=== PATIENT | female | born 1955 | race Caucasian/White ===

== ENCOUNTER 2018-02-14 11:00 | Inpatient (IN) ==
[2018-02-14] MEDS ORDERED: CeFAZolin Syr 3,000MG/30 ML 3,000 MG/30 ML SYRINGE IVPB ONE ×2 (11:35→11:42)
[2018-02-14] MEDS ORDERED: Ringers Solution, Lactated 1,000 ML IVC SCH (11:45)
[2018-02-14] MEDS ORDERED: Heparin 1,000 UNITS/500 mL 500 ML ONE (11:59)
[2018-02-14] MEDS ORDERED: Albuterol 2.5 MG/3 ML NEBULIZER IH ONE (12:08)
[2018-02-14] MEDS ORDERED: Albuterol 2.5 MG/3 ML NEBULIZER ONE (12:09)
[2018-02-14] MEDS ORDERED: *HR* Midazolam HCl 2 MG/2 ML VIAL ONE ×2 (12:42→16:44)
[2018-02-14] MEDS ORDERED: Vancomycin 1,000 MG, Sodium Chloride IRRigation 1,000 ML IR ONE (12:50)
--- NOTE | 2018-02-14 12:58 | Anesthesia Evaluation PreOp ---
Date of Encounter: 02/14/18 Time of Encounter: 12:56 - Past History Planned Operation: Left CEA Cardiac History: GA, HTN, Hyperlipidemia, Cardiac Stent (2010, 2013, 2016), Other (PAD, CAD) Pulmonary History: Smoker, Pack/yr (1 ppd x 50yrs) Other Medical History: Diabetes Type II, Other (morbid obesity) Anesthesia History: No Prior Anesthetic Complications, Past Anesthesia (tubal, breast bx, SHAMA) : No Alcohol Use: rarely Drug use: none Medications and Allergies Aspirin Enteric Coated [Aspirin EC] 81 mg PO DAILY 11/06/15 [History] Clopidogrel [Plavix] 75 mg PO DAILY 11/06/15 [History] Isosorbide MONOnitrate (24 HR) [Imdur] 60 mg PO DAILY 30 Days tab.er.24h [Rx] Losartan [Cozaar] 100 mg PO DAILY 11/06/15 [History] Metformin HCl [Glucophage] 1,000 mg PO BID 11/06/15 [History] Metoprolol [Lopressor] 50 mg PO BID 11/06/15 [History] Pantoprazole Sodium 40 mg PO DAILY 11/06/15 [History] Pravastatin Sodium [Pravachol] 80 mg PO DAILY 11/06/15 [History] Nitroglycerin 0.4 mg SL Q5-6MIN PRN 08/29/17 [History] amLODIPine [Norvasc] 2.5 mg PO DAILY 08/29/17 [History] glipiZIDE [Glipizide] 10 mg PO DAILY 02/14/18 [History] 3 Allergy/AdvReac Type Severity Reaction Status Date / Time shellfish derived Allergy Swelling Verified 02/14/18 12:12 of Lip/Tongue/Throat - Meds/Allergy Pre-op Review Medications Reviewed: Yes Allergies Reviewed: Yes Beta Blockers on Current Med List: Yes If Beta Blockers taken, Date/Time (Last Dose taken): today 929 Anesthesia Results - Labs Laboratory Tests 02/08/18 02/08/18 09:29 09:29 Hgb 14.7 Hct 43.4 Plt Count 293 Sodium 134 L Potassium 4.5 BUN 16 Creatinine 1.00 - Imaging EKG: report reviewed ( Interpretive Statements) Anesthesia Exam Selected Entries 02/14/18 11:22 02/14/18 12:13 Temperature 98.2 F Pulse Rate 64 Respiratory Rate 18 Blood Pressure 155/63 O2 Sat by Pulse Oximetry 96 Oxygen Delivery Method Room Air Weight: 124kg BMI 53 - HEENT Pupil (Motor): EOMI Mallampati: II Teeth: Edentulous Oral Opening: Greater than 3 - ORDER TAKER LOC: Oriented ORDER TAKER Motor: Normal RUE, Normal LUE, Normal RLE, Normal LLE, Normal Face ORDER TAKER Sensory: Normal: RUE, LUE, RLE, LLE, Face - Cardiac Rhythm: Regular Murmur: None - Pulmonary Breath Sounds: bilateral Clear Respiratory Effort: Symmetrical Anesthesia Assess/Plan ASA Score: 3 Modified [place] Scale for Level of Consciousness: Cooperative, oriented, and tranquil Anesthetic Plan: General Monitoring Plan: Standard Monitors, A-Line Recovery Plan: PACU (agrees to GA and a-line. Will accept blood if needed.)
--- NOTE | 2018-02-14 15:59 | History & Physical Report ---
Date of Encounter: 02/14/18 Time of Encounter: 15:45 24 Hour HP Update - Instructions Instructions: If the History and Physical is less than 30 days old and was completed prior to A.M. admission and or procedure and has NOT been updated on calendar day of procedure please complete this update prior to performing procedure. - Update Patient reports changes in Medical Condition: No Changes in examination, assessment, or condition: No Changes in Medication: No Preop tests/diagnostics Reviewed: Yes Surgery Remains Indicated: Yes Consent for Planned Operative Procedure(s) Verified: Yes - Pre-Operative Checklist Preoperative Checklist Indicated: Yes Prophylactic Antibiotic Ordered: Yes (Vancomycin due to mrsa risk) Home Medications Include Beta Razia: Yes Beta Razia Taken Today (Day of Surgery): Yes Beta Razia Taken Yesterday (Day Prior to Surgery): Yes Is VTE Prophylaxis Indicated?: Yes
[2018-02-14] MEDS ORDERED: Protamine Sulfate 50 MG/5 ML VIAL IVP ONE (16:32)
[2018-02-14] MEDS ORDERED: Bupivacaine-MPF 0.25% 10 ML VIAL ONE (16:32)
[2018-02-14] MEDS ORDERED: Heparin 1,000 UNITS/500 mL 1,000 ML ONE (16:33)
[2018-02-14] MEDS ORDERED: *HR* Propofol 200 MG/20 ML VIAL IVP ONE (16:44)
[2018-02-14] MEDS ORDERED: Lidocaine -MPF 2% 2 ML VIAL ONE (16:44)
[2018-02-14] MEDS ORDERED: Dexamethasone 4 MG/ML VIAL ONE (16:44)
[2018-02-14] MEDS ORDERED: *HR* FentaNYL (PF) 100 MCG/2 ML VIAL ONE (16:44)
[2018-02-14] MEDS ORDERED: Ondansetron 4 MG/2 ML VIAL ONE (16:44)
[2018-02-14] MEDS ORDERED: *HR* Remifentanil 1 MG VIAL IVP ONE (16:48)
[2018-02-14] MEDS ORDERED: *HR* Phenylephrine 10 MG/ML VIAL ONE (16:48)
[2018-02-14] MEDS ORDERED: *HR* Remifentanil 2 MG VIAL IVP ONE (18:00)
[2018-02-14] MEDS ORDERED: *HR* Heparin 5,000 UNIT/ML VIAL ONE (19:18)
--- NOTE | 2018-02-14 20:41 | Operative Note ---
Date of procedure: 02/14/18 Pre-op diagnosis: Symptomatic left internalcarotid artery stenosis Post-op diagnosis: same Procedure: Left carotid endarterectomy with hemashield patch angioplasty. Complications: None Anesthesia: GETA Surgeon: Tano Flores Was there an retail administrative assistant present: No Estimated blood loss (cc): 50 Specimen: Left carotid plaque Condition: stable Disposition: PACU Procedure in Detail: Indications: The patient is a 62 year old female with a history of carotid stenosis. She has had multiple prior episodes of left eye amaurosis fugax. She was noted to have significant left internal carotid artery stenosis. A left carotid endarterectomy was recommended to reduce her risk of cerebrovascular accident. Procedure: The patient was identified in the preoperative area. The risks, benefits, and alternatives of the procedure were discussed and all questions were answered. The patient was then taken to the operating room and placed in supine position on the operating table. After induction of general endotracheal anesthesia, the patient was cleaned and draped in normal sterile fashion. A longitudinal incision was made anterior to the left sternocleidomastoid muscle. Hemostasis was obtained via electrocautery. Through a process of blunt , sharp, and electrocautery dissection, the platysma was traversed. The jugular vein was identified. The facial vein was clamped, divided, tied off with a 2-0 silk suture ligature. The jugular vein was retracted in order to expose the carotid bifurcation. The patient received 2000 units of heparin intravenously at this time. Proximal dissection of the common and external carotid arteries were performed circumferentially. Dissection of the internal carotid was performed circumferentially. Vessels loops were passed around the internal and external carotid and an umbilical tape was passed from the common carotid artery. The patient received additional 3000 units of heparin intravenously. Additional heparin was given throughout the case to maintain adequate anticoagulation. After waiting adequate time for it to circulate, the vessels were occluded and a longitudinal arteriotomy was made into the common carotid artery extending into the internal carotid beyond the plaque. Vigorous pulsatile retrograde flow was noted from the internal carotid artery upon release of the loop. Given the significant retrograde perfusion ad the tortuous internal carotid artery, a shunt was not placed. A dental [place] was used to perform a standard endarterectomy on the common, internal and external carotid artery plaque. Proximal and distal endpoints were inspected and elevated flaps were noted. A Hemashield patch was cut to fit the defect and sutured in place with running 6 -0 Prolene. Prior to completing the closure, each vessel was flushed and then reoccluded. Heparinized saline was infused into the lumen. The patch was completed. Flow was restored in the external carotid artery, followed the common carotid artery, lastly the internal carotid artery was opened. A low resistance arterialized signal was present within the internal carotid artery beyond the patch. Thrombin and Gelfoam were used to aid in hemostasis. Meticulous hemostasis was obtained throughout the wound with electrocautery. Platelet rich and platelet poor plasma were infused into the wounds. The sternocleidomastoid was reapproximated with interrupted 3-0 Vicryl. Platelet rich and platelet poor plasma were infused into the wound. A TLS drain was brought through a separate stab incision and sutured in place with 0 silk suture. The platysma was reapproximated with running 3-0 Vicryl. Local anesthetic was infused in the skin. A 3-0 Monocryl was used to reapproximate the skin. Sterile dressing was applied. The patient was extubated, taken to the recovery room in stable condition.
--- NOTE | 2018-02-14 21:20 | Anesthesia Evaluation Post Op ---
Date of Encounter: 02/14/18 Time of Encounter: 21:20 - Vital Signs Vital Signs: Last Vital Signs Temp 97.6 F 02/14/18 21:06 Pulse 60 02/14/18 21:16 Resp 18 02/14/18 21:16 BP 136/63 02/14/18 21:16 Pulse Ox 96 02/14/18 21:16 - Lungs Lungs: Clear Ascult./Percussion - Airway Airway: Non-obstructed - Cardiovascular Regular Rate - Mental Status Mental Status: Alert & Oriented, Answers Appropriately - Pain Pain Scale: 3 - Nausea Vomiting Nausea Vomiting: Not Present - Hydration Hydration: NPO, Bourne catheter - Discharge PostOp Status: Transfer Patient to floor
[2018-02-14] MEDS ORDERED: Insulin LISPRO 300 UNITS/3 ML VIAL SQ SCH (21:52)
[2018-02-14] MEDS ORDERED: *HR* Dextrose 50 % in Water (Syg) 50 ML SYRINGE IVP PRN (21:52)
[2018-02-14] MEDS ORDERED: Dextrose Gel 15 GM/37.5 ML TUBE PO PRN ×2 (21:52)
[2018-02-14] MEDS ORDERED: *HR* OxyCODONE Immed Rel 5 MG TABLET PO PRN (21:52)
[2018-02-14] MEDS ORDERED: Nitroglycerin 0.4 MG TAB.SUBL SL PRN (21:52)
[2018-02-14] MEDS ORDERED: OXYCODONE Oral CONC 10 MG/0.5 ML ORAL.SYG SL PRN ×2 (21:52)
[2018-02-14] MEDS ORDERED: Naloxone 0.4 MG/ML INJ IVP PRN (21:52)
[2018-02-14] MEDS ORDERED: D5% in Water 1,000 ML IVC PRN (21:52)
[2018-02-14] MEDS ORDERED: *HR* HYDROcodone/Acet 5/325 mg TABLET PO PRN (21:52)
[2018-02-14] MEDS ORDERED: 0.9 % Sodium Chloride 1,000 ML IVC SCH (21:52)
[2018-02-14] MEDS ORDERED: Ondansetron 4 MG/2 ML VIAL IVP PRN (21:52)
[2018-02-14] MEDS ORDERED: Acetaminophen 325 MG TABLET PO PRN (21:52)
[2018-02-14] MEDS ORDERED: *HR* Labetalol 20 MG/4 ML SYRINGE IVP PRN (21:52)
[2018-02-14] MEDS ORDERED: CeFAZolin Pre 2,000 MG/100 ML 2,000 MG/100 ML BAG IVPB SCH (22:30)
[2018-02-14] MEDS: ceFAZolin 2,000 MG in D5% in Water 100 ML IVPB SCH (23:20)
[2018-02-14] MEDS: *HR* Metoprolol 5 MG/5 ML VIAL IVP SCH (23:20)
[2018-02-15] MEDS: *HR* Metoprolol 5 MG/5 ML VIAL IVP SCH (05:28)
[2018-02-15] MEDS ORDERED: *HR* Heparin 5,000 UNIT/ML VIAL SQ SCH (06:00)
[2018-02-15 07:30] VITALS: BP 117/56
[2018-02-15] MEDS ORDERED: Insulin LISPRO 300 UNITS/3 ML VIAL SQ SCH (07:30)
--- NOTE | 2018-02-15 07:44 | Discharge Summary ---
Orders not resulted at time of discharge: Pending orders 02/14/18 20:41 Surgical Pathology [PTH] Routine Date of Encounter: 02/15/18 Time of Encounter: 07:40 - Discharge Diagnosis (1) Carotid stenosis, left Priority: Primary Status: Chronic Comments: She is post operative day #1 after a left carotid endarterectomy. She has no neurologic deficits. She is tolerating a diet and her pain is controlled. She will be discharged today. (2) CKD (chronic kidney disease), stage III Priority: Secondary Status: Chronic (3) Mixed hyperlipidemia Priority: Secondary Status: Chronic (4) HTN (hypertension) Priority: Secondary Status: Chronic Qualifiers: Hypertension type: essential hypertension Qualified Code(s): I10 - Essential (primary) hypertension (5) Tobacco abuse Priority: Secondary Status: Chronic - Hospital Course Hospital course: Ms. Kilgore is a 62 year old female who underwent a left carotid endarterectomy and tolerated the procedure well. She was discharged in stable condition on postoperative day #1 without complications. Time spent discussing smoking cessation with patient: 3 to 10 minutes - Time Spent with Patient Total time spent providing and/or coordinating discharge services: - Discharge Medications Prescriptions: HYDROcodone/Acet 5/325 mg [[place] 5-325 mg] 1 tab PO Q6HR PRN 5 Days #20 tablet PRN Reason: postoperative pain Home Medications: Aspirin Enteric Coated [Aspirin EC] 81 mg PO DAILY 11/06/15 [History] Clopidogrel [Plavix] 75 mg PO DAILY 11/06/15 [History] Isosorbide MONOnitrate (24 HR) [Imdur] 60 mg PO DAILY 30 Days tab.er.24h [Rx] Losartan [Cozaar] 100 mg PO DAILY 11/06/15 [History] Metformin HCl [Glucophage] 1,000 mg PO BID 11/06/15 [History] Metoprolol [Lopressor] 50 mg PO BID 11/06/15 [History] Pantoprazole Sodium 40 mg PO DAILY 11/06/15 [History] Pravastatin Sodium [Pravachol] 80 mg PO DAILY 11/06/15 [History] Nitroglycerin 0.4 mg SL Q5-6MIN PRN 08/29/17 [History] amLODIPine [Norvasc] 2.5 mg PO DAILY 08/29/17 [History] glipiZIDE [Glipizide] 10 mg PO DAILY 02/14/18 [History] HYDROcodone/Acet 5/325 mg [[place] 5-325 mg] 1 tab PO Q6HR PRN 5 Days #20 tablet 02/15/18 [Rx] Allergies/Adverse Reactions: 3 Allergy/AdvReac Type Severity Reaction Status Date / Time shellfish derived Allergy Swelling Verified 02/14/18 12:12 of Lip/Tongue/Throat Date of admission: 02/14/18 21:50 Primary care physician: Curry Anne, Procedure(s) Performed: Left carotid endarterectomy Discharging clinician: Tano Flores Anticipated date of discharge: 02/15/18 Exam Vital Signs, Last 4 Hours Temp Pulse Resp BP Pulse Ox 02/15/18 07:23 98.9 F 47 18 117/56 98 02/15/18 04:39 98.1 F 50 16 107/69 95 02/15/18 04:30 59 107/69 General: Present: Conversant, No Apparent Distress HEENT: Present: Trachea midline, Pupils equal Neck: Absent: JVD Cardiac: Present: Reg Rate and Rhythm Lungs: Present: Normal Breath Sounds Neuro: Present: No focal deficits noted, Motor nerves grossly intact, Sensory nerves grossly intact Abdomen: Present: Soft, Non-tender Vascular: Present: Normal capillary refill, Surgical incisions (clean, dry and intact without erythema, drainage or hematoma). Absent: Edema - Patient Status Disposition: Home, Self-Care Condition: Good Functional capacity at discharge: independent ambulation Overall status at discharge: patient is back to baseline - Discharge Instructions Instructions: Hydrocodone/Acetaminophen (By mouth), Carotid Endarterectomy (DC) Follow Up With: Tano Flores MD [Partnered Physician] - 03/25/18 8:50 am Curry Anne DO [Primary Care Provider] - 02/18/18 8:00 am Additional Instructions: May remove bandage and shower on 02/16/18. Wash wound gently and pat to dry. No driving for [address] Flores at [phone]. - Diet and Activity Activity: increase activity as tolerated Diet: advance to your usual diet - VTE Documentation of Mechanical Device: Venous foot pump, device
[2018-02-15] MEDS ORDERED: Isosorbide MONOnitrate (24 HR) 60 MG TAB.ER.24H PO SCH (09:00)
[2018-02-15] MEDS ORDERED: Aspirin Enteric Coated 81 MG Tablet PO SCH (09:00)
[2018-02-15] MEDS ORDERED: amLODIPine 5 MG TABLET PO SCH (09:00)
[2018-02-15] MEDS: ceFAZolin 2,000 MG in D5% in Water 100 ML IVPB SCH (09:42)
== END 2018-02-15 10:14 | disposition home or self-care (01) | DRG 24 ==
LOC: SAMDAY 11:00 → 2NNU 21:50
PROVIDERS: ADMIT Surgery; ATTEND Surgery

== ENCOUNTER 2021-08-30 07:53 | Inpatient (IN) ==
[2021-08-30] MEDS ORDERED: *HR* Rocuronium Bromide 50 MG/5 ML VIAL ONE ×3 (08:35→13:20)
[2021-08-30] MEDS ORDERED: *HR* FentaNYL (PF) 100 MCG/2 ML VIAL ONE ×2 (08:35→11:07)
[2021-08-30] MEDS ORDERED: Ondansetron 4 MG/2 ML VIAL ONE (08:35)
[2021-08-30] MEDS ORDERED: Lidocaine HCL 4 ML Topical Solution (Laryng-O-Jet Kit Sterile Pak) TP ONE (08:35)
[2021-08-30] MEDS ORDERED: Lidocaine -MPF 2% 5 ML VIAL ONE (08:35)
[2021-08-30] MEDS ORDERED: *HR* Propofol 200 MG/20 ML VIAL IVP ONE (08:35)
[2021-08-30] MEDS ORDERED: cefOXitin 2,000 MG in Water for inj. (sterile) 10 ML IVP ONE (08:37)
[2021-08-30] MEDS ORDERED: *HR* Succinylcholine 200 MG/10 ML VIAL IVP ONE (08:41)
[2021-08-30] MEDS ORDERED: Ringers Solution, Lactated 1,000 ML IVC SCH (08:45)
[2021-08-30] MEDS ORDERED: Famotidine 20 MG/2 ML VIAL IVP ONE (09:06)
[2021-08-30] MEDS ORDERED: Ondansetron 4 MG/2 ML VIAL IVP PRN ×3 (09:06→18:06)
[2021-08-30] MEDS ORDERED: Acetaminophen IV 1,000 MG/100 ML BAG IVPB ONE (09:06)
[2021-08-30] MEDS ORDERED: *HR* OxyCODONE Immed Rel 5 MG TABLET PO PRN ×2 (09:06→17:18)
[2021-08-30] MEDS ORDERED: *HR* Metoprolol 5 MG/5 ML VIAL IVP PRN (09:06)
[2021-08-30] MEDS ORDERED: *HR* HYDROmorphone PF 0.5 MG/0.5 ML SYRINGE IVP PRN ×2 (09:06→17:18)
[2021-08-30] MEDS ORDERED: Albuterol 2.5 MG/3 ML NEBULIZER IH PRN (09:06)
[2021-08-30] MEDS ORDERED: EPHEDrine 50 MG/ML VIAL ONE (10:44)
[2021-08-30] MEDS ORDERED: *HR* HYDROMORPHONE 2 MG/ML VIAL ONE (12:27)
[2021-08-30] MEDS ORDERED: CefOXitin 2,000 MG VIAL ONE (13:56)
[2021-08-30] MEDS ORDERED: Promethazine 6.25 MG in Water for inj. (sterile) 20 ML IVPB PRN (17:18)
[2021-08-30] MEDS ORDERED: *HR* HYDROmorphone 20 MG/20 ML PCA IVC PRN (18:06)
[2021-08-30] MEDS ORDERED: *HR* Dextrose 50 % in Water (Syg) 50 ML SYRINGE IVP PRN (18:06)
[2021-08-30] MEDS ORDERED: D5% in Water 1,000 ML IVC PRN (18:06)
[2021-08-30] MEDS ORDERED: Dextrose Gel 15 GM/37.5 ML TUBE PO PRN ×2 (18:06)
[2021-08-30] MEDS ORDERED: Naloxone 0.4 MG/ML INJ IVP PRN (18:06)
[2021-08-30] MEDS ORDERED: cefOXitin 1,000 MG in 0.9 % Sodium Chloride Mini Bag 100 ML IVPB SCH (19:00)
[2021-08-30] MEDS: 0.9 % Sodium Chloride 1,000 ML IVC SCH (19:30)
[2021-08-30] MEDS: Insulin LISPRO 300 UNITS/3 ML VIAL SUBQ SCH ×2 (22:14→23:49)
[2021-08-30] MEDS: Ketorolac 30 MG/ML VIAL IVP SCH ×2 (22:15→23:50)
[2021-08-31 01:11] LABS: Basophils % 0.2 %; Hematocrit 40.1 % (35.3-44.9); Hemoglobin 12.4 g/dL (11.5-15.4); Immature Granulocytes % 0.5 % (0-4); Lymphocytes # 0.8 K/mcL (0.6-4.6); Mean Corpuscular HGB Conc 30.9 g/dL (31.6-35.5); Mean Corpuscular Hemoglobin 27.9 pg (28.0-33.3); Mean Corpuscular Volume 90.1 fL (83.0-100.0); Mean Platelet Volume 11.2 fL (9.4-12.4); Monocytes % 7.2 %; Neutrophils # 11.5 K/mcL (1.6-8.9); Platelet Count 256 K/mcL (140-400); Red Blood Count 4.45 M/mcL (3.82-4.97); Red Cell Distribution Width 14.9 % (11.5-14.5); Segmented Neutrophils % 86.1 %; White Blood Count 13.3 K/mcL (4.3-11.1)
[2021-08-31 01:57] LABS: Calcium 8.8 mg/dL (8.6-10.3); Potassium 4.9 mEq/L (3.5-5.1)
[2021-08-31] MEDS: Ketorolac 30 MG/ML VIAL IVP SCH ×3 (05:10→17:46)
[2021-08-31] MEDS: cefOXitin 1,000 MG in 0.9 % Sodium Chloride Mini Bag 100 ML IVPB SCH ×2 (05:10→15:27)
[2021-08-31] MEDS: Insulin LISPRO 300 UNITS/3 ML VIAL SUBQ SCH ×3 (05:10→17:49)
[2021-08-31] MEDS: 0.9 % Sodium Chloride 1,000 ML IVC SCH ×2 (06:14→17:47)
[2021-08-31] MEDS: Isosorbide MONOnitrate (24 HR) 60 MG TAB.ER.24H PO SCH (09:28)
[2021-08-31] MEDS: *HR* Heparin 5,000 UNIT/ML VIAL SQ SCH ×2 (17:47→22:12)
[2021-09-01] MEDS: Insulin LISPRO 300 UNITS/3 ML VIAL SUBQ SCH ×4 (00:38→17:11)
[2021-09-01] MEDS: Ketorolac 30 MG/ML VIAL IVP SCH ×5 (00:38→23:32)
[2021-09-01] MEDS: *HR* Heparin 5,000 UNIT/ML VIAL SQ SCH ×3 (05:04→21:02)
[2021-09-01] MEDS: 0.9 % Sodium Chloride 1,000 ML IVC SCH ×2 (05:04→16:05)
[2021-09-01] MEDS ORDERED: Morphine Sulfate Oral CONC 10 MG/0.5 ML ORAL.SYG SL PRN (06:12)
[2021-09-01] MEDS: Isosorbide MONOnitrate (24 HR) 60 MG TAB.ER.24H PO SCH (10:03)
[2021-09-01] MEDS: *HR* OxyCODONE/APAP 5/325 TABLET PO PRN ×2 (13:49→21:02)
[2021-09-01 20:23] VITALS: O2SAT 98
[2021-09-01] MEDS ORDERED: Insulin LISPRO 300 UNITS/3 ML VIAL SUBQ SCH (21:00)
[2021-09-02] MEDS: 0.9 % Sodium Chloride 1,000 ML IVC SCH (05:17)
[2021-09-02] MEDS: *HR* Heparin 5,000 UNIT/ML VIAL SQ SCH (05:18)
[2021-09-02] MEDS: Ketorolac 30 MG/ML VIAL IVP SCH ×3 (05:18→11:45)
[2021-09-02] MEDS: *HR* OxyCODONE/APAP 5/325 TABLET PO PRN ×2 (05:26→13:06)
[2021-09-02 07:29] VITALS: TEMP 97.9
[2021-09-02] MEDS: Insulin LISPRO 300 UNITS/3 ML VIAL SUBQ SCH ×2 (08:08→11:46)
[2021-09-02] MEDS: Isosorbide MONOnitrate (24 HR) 60 MG TAB.ER.24H PO SCH (08:09)
[2021-09-02 10:38] VITALS: BP 179/64; PULSE 71
== END 2021-09-02 14:34 | disposition home or self-care (01) | DRG 330 ==
LOC: SAMDAY 07:53 → 3ANU 18:00
PROVIDERS: ADMIT Surgery; ATTEND Surgery

== ENCOUNTER 2021-09-05 23:59 | Inpatient (IN) ==
[2021-09-06] MEDS ORDERED: 0.9 % Sodium Chloride 1,000 ML IVC ONE (00:14)
[2021-09-06] MEDS ORDERED: Isovue-370 500 ML BOTTLE IVP ONE (00:22)
[2021-09-06] MEDS ORDERED: Morphine Sulfate 2 MG/ML SYRINGE IVP ONE ×2 (00:27→00:57)
[2021-09-06] MEDS ORDERED: Ondansetron 4 MG/2 ML VIAL IVP ONE (00:27)
[2021-09-06 00:32] LABS: Basophils # 0.1 K/mcL (0.0-0.2); Basophils % 0.7 %; Eosinophils # 0.1 K/mcL (0.0-0.6); Eosinophils % 0.5 %; Hematocrit 35.2 % (35.3-44.9); Hemoglobin 11.3 g/dL (11.5-15.4); Immature Granulocytes % 4.7 % (0-4); Lymphocytes # 1.6 K/mcL (0.6-4.6); Lymphocytes % 9.3 %; Mean Corpuscular HGB Conc 32.1 g/dL (31.6-35.5); Mean Corpuscular Hemoglobin 27.9 pg (28.0-33.3); Mean Corpuscular Volume 86.9 fL (83.0-100.0); Mean Platelet Volume 10.7 fL (9.4-12.4); Monocytes # 1.7 K/mcL (0.0-1.3); Monocytes % 9.6 %; Neutrophils # 13.2 K/mcL (1.6-8.9); Nucleated Red Blood Cells 0.3 /100 WBC (0); Platelet Count 373 K/mcL (140-400); Red Blood Count 4.05 M/mcL (3.82-4.97); Red Cell Distribution Width 14.8 % (11.5-14.5); Segmented Neutrophils % 75.2 %; White Blood Count 17.5 K/mcL (4.3-11.1)
[2021-09-06 00:48] LABS: INR 1.3; Prothrombin Time 14.9 Seconds (9.4-12.1)
[2021-09-06 00:51] LABS: Activated Partial Thrombo Time 32.2 Seconds (26.0-36.0)
[2021-09-06 00:54] LABS: Albumin 3.3 g/dL (3.5-5.7); Albumin/Globulin Ratio 0.8 (1.1-2.2); Bilirubin,Direct 0.3 mg/dL (0.0-0.2); Bilirubin,Indirect 0.6 mg/dL (0.0-1.0); Bilirubin,Total 0.9 mg/dL (0.3-1.0); Globulin 3.9 g/dL (2.4-3.5); Potassium 3.7 mEq/L (3.5-5.1); Total Protein 7.2 g/dL (6.4-8.9)
[2021-09-06 00:55] LABS: Troponin I 0.03 ng/mL (< 0.04)
[2021-09-06] MEDS ORDERED: *HR* HYDROmorphone (PF) 1 MG/ML SYRINGE IVP ONE (02:21)
[2021-09-06] MEDS ORDERED: Piperacillin/Tazobactam 3.375 GM in 0.9 % Sodium Chloride Mini Bag 100 ML IVPB ONE (03:36)
[2021-09-06] MEDS ORDERED: 0.9 % Sodium Chloride 1,000 ML IVC SCH (04:00)
[2021-09-06] MEDS ORDERED: Naloxone 0.4 MG/ML INJ IVP PRN ×2 (04:03→10:11)
[2021-09-06] MEDS ORDERED: Ondansetron 4 MG/2 ML VIAL IVP PRN ×2 (04:03→04:33)
[2021-09-06] MEDS ORDERED: *HR* HYDROmorphone (PF) 1 MG/ML SYRINGE IVP PRN (04:09)
[2021-09-06] MEDS ORDERED: CefOXitin 1,000 MG VIAL ONE ×2 (04:27→07:29)
[2021-09-06] MEDS ORDERED: Promethazine 6.25 MG in Water for inj. (sterile) 20 ML IVPB PRN (04:33)
[2021-09-06] MEDS ORDERED: *HR* HYDROmorphone PF 0.5 MG/0.5 ML SYRINGE IVP PRN (04:33)
[2021-09-06] MEDS ORDERED: *HR* OxyCODONE Immed Rel 5 MG TABLET PO PRN (04:33)
[2021-09-06] MEDS ORDERED: *HR* Phenylephrine 10 MG/ML VIAL ONE (04:37)
[2021-09-06] MEDS ORDERED: *HR* Succinylcholine 200 MG/10 ML VIAL IVP ONE (04:42)
[2021-09-06] MEDS ORDERED: Lidocaine -MPF 2% 2 ML VIAL ONE (04:42)
[2021-09-06] MEDS ORDERED: *HR* Rocuronium Bromide 50 MG/5 ML VIAL ONE ×2 (04:42→08:17)
[2021-09-06] MEDS ORDERED: *HR* Magnesium Sulfate 1 GM/2 ML VIAL ONE (04:42)
[2021-09-06] MEDS ORDERED: *HR* Propofol 200 MG/20 ML VIAL IVP ONE (04:43)
[2021-09-06] MEDS ORDERED: *HR* FentaNYL (PF) 100 MCG/2 ML VIAL ONE ×2 (04:43→20:05)
[2021-09-06] MEDS ORDERED: *HR* Norepinephrine 4 MG/4 ML VIAL IVC ONE (04:46)
[2021-09-06] MEDS ORDERED: Albumin Human 5% 25.0 GM/500 ML IV.SOLN ONE (04:47)
[2021-09-06] MEDS ORDERED: *HR* Vasopressin 20 UNIT/ML VIAL ONE (04:47)
[2021-09-06] MEDS ORDERED: D5% in Water 1,000 ML IVC PRN (04:51)
[2021-09-06] MEDS ORDERED: Dextrose Gel 15 GM/37.5 ML TUBE PO PRN ×2 (04:51)
[2021-09-06] MEDS ORDERED: *HR* Dextrose 50 % in Water (Syg) 50 ML SYRINGE IVP PRN (04:51)
[2021-09-06] MEDS ORDERED: EPHEDrine 50 MG/ML VIAL ONE (04:52)
[2021-09-06] MEDS ORDERED: Oxymetazoline Nasal SPRAY BOTTLE 15ML NS ONE (05:01)
[2021-09-06] MEDS ORDERED: *HR* Etomidate 40 MG/20 ML VIAL IVP ONE (05:20)
[2021-09-06] MEDS ORDERED: CefOXitin 2,000 MG VIAL ONE ×2 (06:58→06:59)
[2021-09-06] MEDS ORDERED: *HR* Metoprolol 5 MG/5 ML VIAL IVP ONE (07:04)
[2021-09-06] MEDS ORDERED: *HR* Midazolam HCl 2 MG/2 ML VIAL ONE (08:18)
[2021-09-06] MEDS: Pantoprazole 40 MG VIAL IVP SCH (10:44)
[2021-09-06] MEDS: 0.9 % Sodium Chloride 1,000 ML IVC SCH ×3 (10:44→20:10)
[2021-09-06] MEDS: Piperacillin/Tazobactam 3.375 GM in 0.9 % Sodium Chloride Mini Bag 100 ML IVPB SCH ×2 (10:46→20:10)
[2021-09-06] MEDS ORDERED: Insulin LISPRO 300 UNITS/3 ML VIAL SUBQ SCH ×2 (12:00→21:00)
[2021-09-06] MEDS ORDERED: Piperacillin/Tazobactam 3.375 GM in 0.9 % Sodium Chloride Mini Bag 100 ML IVPB SCH (12:00)
[2021-09-06] MEDS ORDERED: Furosemide 40 MG/4 ML VIAL IVP ONE (17:01)
[2021-09-06] MEDS ORDERED: *HR* Midazolam HCl 5 MG/5 ML VIAL IVP ONE (17:09)
[2021-09-06] MEDS: Ipratropium/Albuterol Neb 3 ML IH SCH ×2 (19:41→23:44)
[2021-09-06] MEDS: Micafungin 100 MG in 0.9 % Sodium Chloride Mini Bag 100 ML IVPB SCH (20:09)
[2021-09-06] MEDS: *HR* FentaNYL (PF) 100 MCG/2 ML VIAL IVP PRN (20:19)
[2021-09-06] MEDS ORDERED: Dexmedetomidine HCl 400 MCG/100 ML MLS IVC ONE (22:23)
[2021-09-06] MEDS: Dexmedetomidine HCl 400 MCG/100 ML MLS IVC SCH (22:30)
[2021-09-07] MEDS ORDERED: Albumin 25% 25gram/100mL 25 GM/100 ML IV.SOLN IVPB ONE (02:58)
[2021-09-07] MEDS ORDERED: Bumetanide 1 MG/4 ML VIAL IVP ONE (02:58)
[2021-09-07] MEDS: *HR* FentaNYL (PF) 100 MCG/2 ML VIAL IVP PRN ×8 (03:10→22:22)
[2021-09-07] MEDS: Piperacillin/Tazobactam 3.375 GM in 0.9 % Sodium Chloride Mini Bag 100 ML IVPB SCH ×3 (03:11→19:50)
[2021-09-07 03:48] LABS: VBG Ionized Calcium 1.07 mmol/L (1.15-1.35)
[2021-09-07 04:00] LABS: Hematocrit 30.6 % (35.3-44.9); Hemoglobin 9.8 g/dL (11.5-15.4); Mean Corpuscular Hemoglobin 28.2 pg (28.0-33.3); Mean Corpuscular Volume 87.9 fL (83.0-100.0); Mean Platelet Volume 11.1 fL (9.4-12.4); Monocytes # 1.3 K/mcL (0.0-1.3); Nucleated Red Blood Cells 0.3 /100 WBC (0); Platelet Count 349 K/mcL (140-400); Red Blood Count 3.48 M/mcL (3.82-4.97); Red Cell Distribution Width 15.3 % (11.5-14.5)
[2021-09-07] MEDS: Ipratropium/Albuterol Neb 3 ML IH SCH ×6 (04:07→23:23)
[2021-09-07] MEDS: Dexmedetomidine HCl 400 MCG/100 ML MLS IVC SCH ×4 (04:29→23:30)
[2021-09-07] MEDS: 0.9 % Sodium Chloride 1,000 ML IVC SCH (04:29)
[2021-09-07 04:32] LABS: Calcium 7.6 mg/dL (8.6-10.3); Magnesium 2.7 mg/dL (1.6-2.6); Phosphorous 4.1 mg/dL (2.7-4.5); Potassium 4.7 mEq/L (3.5-5.1)
[2021-09-07] MEDS ORDERED: Acetaminophen IV 1,000 MG/100 ML BAG IVPB ONE (04:57)
[2021-09-07 05:09] LABS: Lymphocytes # 0.8 K/mcL (0.6-4.6); Neutrophils # 18.1 K/mcL (1.6-8.9); Platelet Estimate Normal (Normal)
[2021-09-07 05:10] LABS: Polychromasia 1+ (Not Present)
[2021-09-07] MEDS ORDERED: Furosemide 40 MG/4 ML VIAL IVP SCH (09:00)
[2021-09-07] MEDS: *HR* Heparin 5,000 UNIT/ML VIAL SQ SCH ×3 (09:53→22:23)
[2021-09-07] MEDS: Pantoprazole 40 MG VIAL IVP SCH (09:54)
[2021-09-07] MEDS ORDERED: *HR* Dextrose 50 % in Water (Syg) 50 ML SYRINGE IVP PRN (11:17)
[2021-09-07] MEDS ORDERED: D5% in Water 1,000 ML IVC PRN (11:17)
[2021-09-07] MEDS ORDERED: Dextrose Gel 15 GM/37.5 ML TUBE PO PRN ×2 (11:17)
[2021-09-07] MEDS: Insulin LISPRO 300 UNITS/3 ML VIAL SUBQ SCH ×3 (11:49→23:53)
[2021-09-07] MEDS: Albumin 25% 25gram/100mL 25 GM/100 ML IV.SOLN IVPB SCH ×2 (18:14→23:53)
[2021-09-07] MEDS: Micafungin 100 MG in 0.9 % Sodium Chloride Mini Bag 100 ML IVPB SCH (19:50)
[2021-09-07] MEDS: Acetaminophen IV 1,000 MG/100 ML BAG IVPB SCH (23:30)
[2021-09-08] MEDS: *HR* FentaNYL (PF) 100 MCG/2 ML VIAL IVP PRN ×4 (00:19→11:49)
[2021-09-08] MEDS: Ipratropium/Albuterol Neb 3 ML IH SCH ×6 (03:56→23:39)
[2021-09-08] MEDS: Piperacillin/Tazobactam 3.375 GM in 0.9 % Sodium Chloride Mini Bag 100 ML IVPB SCH ×3 (03:58→20:49)
[2021-09-08] MEDS: Insulin LISPRO 300 UNITS/3 ML VIAL SUBQ SCH ×4 (04:01→23:40)
[2021-09-08 04:45] LABS: Basophils % 0.2 %; Eosinophils # 0.2 K/mcL (0.0-0.6); Eosinophils % 0.8 %; Hematocrit 25.5 % (35.3-44.9); Hemoglobin 8.3 g/dL (11.5-15.4); Immature Granulocytes % 2.3 % (0-4); Lymphocytes % 6.4 %; Mean Corpuscular HGB Conc 32.5 g/dL (31.6-35.5); Mean Corpuscular Hemoglobin 28.4 pg (28.0-33.3); Mean Corpuscular Volume 87.3 fL (83.0-100.0); Mean Platelet Volume 11.1 fL (9.4-12.4); Monocytes # 0.8 K/mcL (0.0-1.3); Neutrophils # 16.8 K/mcL (1.6-8.9); Nucleated Red Blood Cells 0.3 /100 WBC (0); Platelet Count 299 K/mcL (140-400); Red Blood Count 2.92 M/mcL (3.82-4.97); Red Cell Distribution Width 15.5 % (11.5-14.5); Segmented Neutrophils % 86.3 %; White Blood Count 19.5 K/mcL (4.3-11.1)
[2021-09-08 04:48] LABS: Lymphocytes # 1.3 K/mcL (0.6-4.6)
[2021-09-08 04:50] LABS: VBG Ionized Calcium 1.02 mmol/L (1.15-1.35)
[2021-09-08 05:05] LABS: Calcium 7.6 mg/dL (8.6-10.3); Magnesium 2.6 mg/dL (1.6-2.6); Phosphorous 3.8 mg/dL (2.7-4.5); Potassium 3.9 mEq/L (3.5-5.1)
[2021-09-08 05:12] LABS: Platelet Estimate Normal (Normal)
[2021-09-08 05:13] LABS: Polychromasia 1+ (Not Present)
[2021-09-08] MEDS: Acetaminophen IV 1,000 MG/100 ML BAG IVPB SCH ×4 (05:46→23:40)
[2021-09-08] MEDS: *HR* Heparin 5,000 UNIT/ML VIAL SQ SCH ×3 (05:46→22:01)
[2021-09-08] MEDS: Calcium Gluconate 1gm/50mL 1 GM/50 ML BAG IVPB SCH ×4 (06:00→20:31)
[2021-09-08] MEDS: Dexmedetomidine HCl 400 MCG/100 ML MLS IVC SCH ×2 (06:50→17:57)
[2021-09-08] MEDS: Albumin 25% 25gram/100mL 25 GM/100 ML IV.SOLN IVPB SCH ×2 (09:49→16:10)
[2021-09-08] MEDS: Pantoprazole 40 MG VIAL IVP SCH (09:49)
[2021-09-08] MEDS: Micafungin 100 MG in 0.9 % Sodium Chloride Mini Bag 100 ML IVPB SCH (19:54)
[2021-09-08] MEDS: 0.9 % Sodium Chloride 1,000 ML IVC SCH (20:31)
[2021-09-09] MEDS: Albumin 25% 25gram/100mL 25 GM/100 ML IV.SOLN IVPB SCH ×3 (00:52→16:08)
[2021-09-09 03:39] LABS: VBG Ionized Calcium 1.03 mmol/L (1.15-1.35)
[2021-09-09 03:48] LABS: Basophils # 0.1 K/mcL (0.0-0.2); Basophils % 0.3 %; Eosinophils # 0.3 K/mcL (0.0-0.6); Eosinophils % 1.2 %; Hemoglobin 7.9 g/dL (11.5-15.4); Immature Granulocytes % 2.3 % (0-4); Lymphocytes # 1.5 K/mcL (0.6-4.6); Lymphocytes % 6.5 %; Mean Corpuscular HGB Conc 31.6 g/dL (31.6-35.5); Mean Corpuscular Hemoglobin 28.1 pg (28.0-33.3); Mean Platelet Volume 11.2 fL (9.4-12.4); Monocytes # 0.8 K/mcL (0.0-1.3); Monocytes % 3.3 %; Neutrophils # 19.8 K/mcL (1.6-8.9); Nucleated Red Blood Cells 0.2 /100 WBC (0); Platelet Count 279 K/mcL (140-400); Red Blood Count 2.81 M/mcL (3.82-4.97); Red Cell Distribution Width 15.6 % (11.5-14.5); Segmented Neutrophils % 86.4 %
[2021-09-09] MEDS: Ipratropium/Albuterol Neb 3 ML IH SCH ×6 (03:49→23:37)
[2021-09-09] MEDS: Piperacillin/Tazobactam 3.375 GM in 0.9 % Sodium Chloride Mini Bag 100 ML IVPB SCH ×2 (03:51→12:19)
[2021-09-09 03:56] LABS: Calcium 8.1 mg/dL (8.6-10.3); Magnesium 2.6 mg/dL (1.6-2.6); Phosphorous 3.8 mg/dL (2.7-4.5); Potassium 3.9 mEq/L (3.5-5.1)
[2021-09-09] MEDS: Dexmedetomidine HCl 400 MCG/100 ML MLS IVC SCH ×4 (05:42→23:45)
[2021-09-09] MEDS: Acetaminophen IV 1,000 MG/100 ML BAG IVPB SCH ×3 (05:43→16:48)
[2021-09-09] MEDS: *HR* Heparin 5,000 UNIT/ML VIAL SQ SCH ×3 (05:43→22:15)
[2021-09-09] MEDS: Insulin LISPRO 300 UNITS/3 ML VIAL SUBQ SCH ×4 (05:44→20:08)
[2021-09-09] MEDS: Calcium Gluconate 1gm/50mL 1 GM/50 ML BAG IVPB PRN ×2 (06:11→12:32)
[2021-09-09] MEDS: Pantoprazole 40 MG VIAL IVP SCH (08:51)
[2021-09-09] MEDS: *HR* FentaNYL (PF) 100 MCG/2 ML VIAL IVP PRN ×4 (10:13→23:46)
[2021-09-09 11:44] LABS: VBG Ionized Calcium 1.08 mmol/L (1.15-1.35)
[2021-09-09] MEDS ORDERED: D10% in Water 500 ML IVC PRN (12:58)
[2021-09-09] MEDS ORDERED: Lidocaine -MPF 1% 5 ML AMPUL INFILT ONE (13:08)
[2021-09-09] MEDS: Ampicillin/Sulbactam 3,000 MG in 0.9 % Sodium Chloride Mini Bag 100 ML IVPB SCH ×2 (16:52→23:46)
[2021-09-09] MEDS ORDERED: Clinimix E 5%-15% SOLUTION 2,000 ML with MVI, adult with vitamin K 10 ML IVC SCH (17:00)
[2021-09-09] MEDS: Micafungin 100 MG in 0.9 % Sodium Chloride Mini Bag 100 ML IVPB SCH (19:57)
[2021-09-10] MEDS: Insulin LISPRO 300 UNITS/3 ML VIAL SUBQ SCH ×6 (01:26→19:56)
[2021-09-10] MEDS: Acetaminophen IV 1,000 MG/100 ML BAG IVPB SCH ×5 (01:27→23:59)
[2021-09-10] MEDS: Albumin 25% 25gram/100mL 25 GM/100 ML IV.SOLN IVPB SCH ×4 (01:28→23:59)
[2021-09-10] MEDS: *HR* FentaNYL (PF) 100 MCG/2 ML VIAL IVP PRN ×5 (02:20→19:55)
[2021-09-10] MEDS: Ipratropium/Albuterol Neb 3 ML IH SCH ×6 (03:25→23:23)
[2021-09-10 05:04] LABS: Basophils # 0.1 K/mcL (0.0-0.2); Basophils % 0.5 %; Eosinophils # 0.2 K/mcL (0.0-0.6); Hematocrit 23.5 % (35.3-44.9); Hemoglobin 7.3 g/dL (11.5-15.4); Lymphocytes # 1.2 K/mcL (0.6-4.6); Mean Corpuscular HGB Conc 31.1 g/dL (31.6-35.5); Mean Corpuscular Hemoglobin 27.7 pg (28.0-33.3); Monocytes # 0.8 K/mcL (0.0-1.3); Monocytes % 4.7 %; Neutrophils # 13.6 K/mcL (1.6-8.9); Nucleated Red Blood Cells 0.2 /100 WBC (0); Platelet Count 286 K/mcL (140-400); Red Blood Count 2.64 M/mcL (3.82-4.97); Red Cell Distribution Width 15.9 % (11.5-14.5); Segmented Neutrophils % 80.8 %; White Blood Count 16.8 K/mcL (4.3-11.1)
[2021-09-10 05:06] LABS: VBG Ionized Calcium 1.14 mmol/L (1.15-1.35)
[2021-09-10 05:37] LABS: Calcium 8.5 mg/dL (8.6-10.3); Magnesium 2.6 mg/dL (1.6-2.6); Phosphorous 2.9 mg/dL (2.7-4.5); Potassium 3.7 mEq/L (3.5-5.1)
[2021-09-10 05:59] LABS: Hypochromasia Present (Not Present); Large Platelets Present (Not Present); Platelet Estimate Normal (Normal)
[2021-09-10] MEDS: *HR* Heparin 5,000 UNIT/ML VIAL SQ SCH ×3 (06:09→22:09)
[2021-09-10] MEDS: Ampicillin/Sulbactam 3,000 MG in 0.9 % Sodium Chloride Mini Bag 100 ML IVPB SCH ×4 (06:09→23:59)
[2021-09-10] MEDS ORDERED: Furosemide 40 MG/4 ML VIAL IVP ONE (07:50)
[2021-09-10] MEDS: Dexmedetomidine HCl 400 MCG/100 ML MLS IVC SCH ×2 (09:33→18:10)
[2021-09-10] MEDS: Pantoprazole 40 MG VIAL IVP SCH (09:33)
[2021-09-10] MEDS ORDERED: Clinimix E 5%-15% SOLUTION 2,000 ML with MVI, adult with vitamin K 10 ML IVC SCH (17:00)
[2021-09-10] MEDS ORDERED: *HR* Metoprolol 5 MG/5 ML VIAL IVP ONE (21:01)
[2021-09-10] MEDS: *HR* Metoprolol 5 MG/5 ML VIAL IVP SCH ×2 (21:02→21:08)
[2021-09-11] MEDS: Dexmedetomidine HCl 400 MCG/100 ML MLS IVC SCH ×4 (01:26→23:13)
[2021-09-11] MEDS: *HR* FentaNYL (PF) 100 MCG/2 ML VIAL IVP PRN ×7 (02:34→22:12)
[2021-09-11] MEDS: Ipratropium/Albuterol Neb 3 ML IH SCH ×6 (04:28→23:34)
[2021-09-11] MEDS: Insulin LISPRO 300 UNITS/3 ML VIAL SUBQ SCH ×7 (04:40→23:44)
[2021-09-11 05:08] LABS: Basophils # 0.1 K/mcL (0.0-0.2); Basophils % 0.4 %; Eosinophils # 0.2 K/mcL (0.0-0.6); Eosinophils % 1.6 %; Hematocrit 22.2 % (35.3-44.9); Hemoglobin 7.1 g/dL (11.5-15.4); Immature Granulocytes % 7.7 % (0-4); Lymphocytes # 1.4 K/mcL (0.6-4.6); Lymphocytes % 9.8 %; Mean Corpuscular Hemoglobin 28.6 pg (28.0-33.3); Mean Corpuscular Volume 89.5 fL (83.0-100.0); Mean Platelet Volume 11.6 fL (9.4-12.4); Monocytes # 0.8 K/mcL (0.0-1.3); Monocytes % 5.7 %; Neutrophils # 10.6 K/mcL (1.6-8.9); Nucleated Red Blood Cells 0.1 /100 WBC (0); Platelet Count 256 K/mcL (140-400); Red Blood Count 2.48 M/mcL (3.82-4.97); Red Cell Distribution Width 15.8 % (11.5-14.5); Segmented Neutrophils % 74.8 %; White Blood Count 14.2 K/mcL (4.3-11.1)
[2021-09-11 05:18] LABS: VBG Ionized Calcium 1.09 mmol/L (1.15-1.35)
[2021-09-11 05:18] LABS: Platelet Estimate Normal (Normal)
[2021-09-11] MEDS: Acetaminophen IV 1,000 MG/100 ML BAG IVPB SCH ×4 (05:23→23:13)
[2021-09-11] MEDS: Ampicillin/Sulbactam 3,000 MG in 0.9 % Sodium Chloride Mini Bag 100 ML IVPB SCH ×4 (05:26→23:14)
[2021-09-11 05:37] LABS: Calcium 8.4 mg/dL (8.6-10.3); Magnesium 2.3 mg/dL (1.6-2.6); Phosphorous 2.8 mg/dL (2.7-4.5); Potassium 3.6 mEq/L (3.5-5.1)
[2021-09-11] MEDS: *HR* Heparin 5,000 UNIT/ML VIAL SQ SCH ×3 (05:40→20:57)
[2021-09-11] MEDS: Calcium Gluconate 1gm/50mL 1 GM/50 ML BAG IVPB PRN (06:15)
[2021-09-11] MEDS ORDERED: Furosemide 40 MG/4 ML VIAL IVP ONE (07:26)
[2021-09-11] MEDS: *HR* Metoprolol 5 MG/5 ML VIAL IVP SCH ×4 (07:50→23:15)
[2021-09-11] MEDS: Pantoprazole 40 MG VIAL IVP SCH (08:05)
[2021-09-11] MEDS: Albumin 25% 25gram/100mL 25 GM/100 ML IV.SOLN IVPB SCH ×2 (08:05→17:03)
[2021-09-11] MEDS ORDERED: Clinimix E 5%-15% SOLUTION 2,000 ML with MVI, adult with vitamin K 10 ML IVC SCH (17:00)
[2021-09-11 17:13] LABS: Hemoglobin 7.2 g/dL (11.5-15.4)
[2021-09-12] MEDS: Albumin 25% 25gram/100mL 25 GM/100 ML IV.SOLN IVPB SCH ×2 (01:09→07:47)
[2021-09-12] MEDS: Ipratropium/Albuterol Neb 3 ML IH SCH ×6 (03:38→23:51)
[2021-09-12 05:07] LABS: Hematocrit 22.5 % (35.3-44.9); Hemoglobin 7.1 g/dL (11.5-15.4); Mean Corpuscular HGB Conc 31.6 g/dL (31.6-35.5); Mean Corpuscular Hemoglobin 28.4 pg (28.0-33.3); Mean Platelet Volume 11.3 fL (9.4-12.4); Nucleated Red Blood Cells 0.2 /100 WBC (0); Platelet Count 296 K/mcL (140-400); Red Cell Distribution Width 15.8 % (11.5-14.5); White Blood Count 13.5 K/mcL (4.3-11.1)
[2021-09-12 05:10] LABS: VBG Ionized Calcium 1.14 mmol/L (1.15-1.35)
[2021-09-12] MEDS: Insulin LISPRO 300 UNITS/3 ML VIAL SUBQ SCH ×5 (05:10→23:42)
[2021-09-12] MEDS: *HR* Heparin 5,000 UNIT/ML VIAL SQ SCH ×3 (05:11→20:18)
[2021-09-12] MEDS: *HR* Metoprolol 5 MG/5 ML VIAL IVP SCH ×4 (05:12→23:26)
[2021-09-12] MEDS: Acetaminophen IV 1,000 MG/100 ML BAG IVPB SCH ×4 (05:12→23:35)
[2021-09-12] MEDS: Ampicillin/Sulbactam 3,000 MG in 0.9 % Sodium Chloride Mini Bag 100 ML IVPB SCH ×4 (05:13→23:26)
[2021-09-12 05:27] LABS: Calcium 8.7 mg/dL (8.6-10.3); Magnesium 2.3 mg/dL (1.6-2.6); Phosphorous 2.9 mg/dL (2.7-4.5); Potassium 3.6 mEq/L (3.5-5.1)
[2021-09-12 05:35] LABS: Eosinophils # 0.5 K/mcL (0.0-0.6); Lymphocytes # 1.9 K/mcL (0.6-4.6); Monocytes # 0.5 K/mcL (0.0-1.3); Neutrophils # 10.3 K/mcL (1.6-8.9); Platelet Estimate Normal (Normal)
[2021-09-12 05:36] LABS: Large Platelets Present (Not Present)
[2021-09-12] MEDS: Dexmedetomidine HCl 400 MCG/100 ML MLS IVC SCH ×4 (07:29→22:43)
[2021-09-12] MEDS: Pantoprazole 40 MG VIAL IVP SCH (07:47)
[2021-09-12] MEDS: *HR* FentaNYL (PF) 100 MCG/2 ML VIAL IVP PRN ×3 (10:35→18:50)
[2021-09-12] MEDS ORDERED: Insulin LISPRO 300 UNITS/3 ML VIAL SUBQ SCH (10:52)
[2021-09-12] MEDS ORDERED: Furosemide 40 MG/4 ML VIAL IVP SCH (14:00)
[2021-09-12] MEDS ORDERED: Dextrose Gel 15 GM/37.5 ML TUBE PO PRN ×2 (15:04)
[2021-09-12] MEDS ORDERED: Clinimix E 5%-15% SOLUTION 2,000 ML with MVI, adult with vitamin K 10 ML IVC SCH ×2 (15:04→17:00)
[2021-09-12] MEDS ORDERED: *HR* Dextrose 50 % in Water (Syg) 50 ML SYRINGE IVP PRN (15:04)
[2021-09-12] MEDS ORDERED: Calcium Gluconate 1gm/50mL 1 GM/50 ML BAG IVPB PRN (15:04)
[2021-09-12] MEDS ORDERED: Naloxone 0.4 MG/ML INJ IVP PRN (15:04)
[2021-09-12] MEDS ORDERED: D10% in Water 500 ML IVC PRN (15:04)
[2021-09-12] MEDS ORDERED: D5% in Water 1,000 ML IVC PRN (15:04)
[2021-09-12] MEDS ORDERED: Clinimix E 5%-15% SOLUTION 2,000 ML, Parenteral Amino Acid 10% 0 ML with MVI, adult wi... IVC SCH (17:00)
[2021-09-12 23:15] LABS: Hematocrit 25.8 % (35.3-44.9); Hemoglobin 7.9 g/dL (11.5-15.4)
[2021-09-13] MEDS: Ipratropium/Albuterol Neb 3 ML IH SCH ×5 (03:36→20:14)
[2021-09-13 05:02] LABS: VBG Ionized Calcium 1.14 mmol/L (1.15-1.35)
[2021-09-13 05:08] LABS: Hematocrit 24.8 % (35.3-44.9); Hemoglobin 7.8 g/dL (11.5-15.4); Mean Corpuscular HGB Conc 31.5 g/dL (31.6-35.5); Mean Corpuscular Hemoglobin 28.2 pg (28.0-33.3); Mean Corpuscular Volume 89.5 fL (83.0-100.0); Mean Platelet Volume 11.9 fL (9.4-12.4); Nucleated Red Blood Cells 0.2 /100 WBC (0); Platelet Count 297 K/mcL (140-400); Red Blood Count 2.77 M/mcL (3.82-4.97); Red Cell Distribution Width 15.8 % (11.5-14.5); White Blood Count 18.6 K/mcL (4.3-11.1)
[2021-09-13] MEDS: Acetaminophen IV 1,000 MG/100 ML BAG IVPB SCH ×4 (05:21→23:27)
[2021-09-13] MEDS: *HR* Heparin 5,000 UNIT/ML VIAL SQ SCH ×3 (05:21→20:50)
[2021-09-13] MEDS: *HR* Metoprolol 5 MG/5 ML VIAL IVP SCH ×4 (05:21→23:21)
[2021-09-13] MEDS: Ampicillin/Sulbactam 3,000 MG in 0.9 % Sodium Chloride Mini Bag 100 ML IVPB SCH ×4 (05:22→23:28)
[2021-09-13] MEDS: Insulin LISPRO 300 UNITS/3 ML VIAL SUBQ SCH ×6 (05:22→23:29)
[2021-09-13] MEDS: Dexmedetomidine HCl 400 MCG/100 ML MLS IVC SCH ×4 (05:23→23:48)
[2021-09-13 05:25] LABS: Calcium 8.8 mg/dL (8.6-10.3); Phosphorous 2.5 mg/dL (2.7-4.5); Potassium 3.7 mEq/L (3.5-5.1)
[2021-09-13 05:48] LABS: Eosinophils # 0.7 K/mcL (0.0-0.6); Large Platelets Present (Not Present); Lymphocytes # 0.7 K/mcL (0.6-4.6); Monocytes # 1.1 K/mcL (0.0-1.3); Neutrophils # 14.9 K/mcL (1.6-8.9); Platelet Estimate Normal (Normal)
[2021-09-13 05:49] LABS: Hypochromasia Present (Not Present)
[2021-09-13] MEDS: *HR* FentaNYL (PF) 100 MCG/2 ML VIAL IVP PRN (08:16)
[2021-09-13] MEDS: Pantoprazole 40 MG VIAL IVP SCH (08:16)
[2021-09-13] MEDS ORDERED: *HR* LORazepam 2 MG/ML VIAL IVP ONE ×2 (09:36→13:39)
[2021-09-13] MEDS: Furosemide 40 MG/4 ML VIAL IVP SCH (11:47)
[2021-09-13] MEDS: Insulin DETEMIR 100 UNIT/ML X5UNITS SUBQ SCH (11:54)
[2021-09-13] MEDS ORDERED: Nicotine 21 MG PATCH.TD24 TD PRN (12:54)
[2021-09-13 14:15] LABS: VBG HCO3 27 mEq/L (21-27); VBG PCO2 51 mmHg (41-51); VBG PH 7.33 pH Units (7.32-7.42); VBG PO2 183 mmHg (25-50)
[2021-09-13] MEDS ORDERED: Furosemide 40 MG/4 ML VIAL IVP STA (15:53)
[2021-09-13] MEDS ORDERED: Clinimix E 5%-15% SOLUTION 2,000 ML with MVI, adult with vitamin K 10 ML IVC SCH (17:00)
[2021-09-14] MEDS: Ipratropium/Albuterol Neb 3 ML IH SCH ×7 (00:07→23:03)
[2021-09-14] MEDS: Dexmedetomidine HCl 400 MCG/100 ML MLS IVC SCH ×2 (03:47→12:13)
[2021-09-14] MEDS: Insulin LISPRO 300 UNITS/3 ML VIAL SUBQ SCH ×5 (04:09→19:25)
[2021-09-14 04:16] LABS: Basophils # 0.1 K/mcL (0.0-0.2); Basophils % 0.6 %; Eosinophils # 0.2 K/mcL (0.0-0.6); Eosinophils % 1.5 %; Hematocrit 22.1 % (35.3-44.9); Immature Granulocytes % 8.8 % (0-4); Lymphocytes % 14.4 %; Mean Corpuscular HGB Conc 31.7 g/dL (31.6-35.5); Mean Corpuscular Hemoglobin 28.6 pg (28.0-33.3); Mean Corpuscular Volume 90.2 fL (83.0-100.0); Mean Platelet Volume 11.4 fL (9.4-12.4); Monocytes # 0.9 K/mcL (0.0-1.3); Monocytes % 6.7 %; Neutrophils # 9.3 K/mcL (1.6-8.9); Nucleated Red Blood Cells 0.4 /100 WBC (0); Platelet Count 377 K/mcL (140-400); Red Blood Count 2.45 M/mcL (3.82-4.97); White Blood Count 13.7 K/mcL (4.3-11.1)
[2021-09-14 04:20] LABS: VBG Ionized Calcium 1.19 mmol/L (1.15-1.35)
[2021-09-14 04:36] LABS: Calcium 8.7 mg/dL (8.6-10.3); Magnesium 2.2 mg/dL (1.6-2.6); Phosphorous 3.2 mg/dL (2.7-4.5); Potassium 3.6 mEq/L (3.5-5.1)
[2021-09-14] MEDS: *HR* Metoprolol 5 MG/5 ML VIAL IVP SCH ×2 (04:42→12:25)
[2021-09-14] MEDS: Ampicillin/Sulbactam 3,000 MG in 0.9 % Sodium Chloride Mini Bag 100 ML IVPB SCH ×3 (05:13→16:56)
[2021-09-14] MEDS: *HR* Heparin 5,000 UNIT/ML VIAL SQ SCH ×3 (05:17→22:35)
[2021-09-14 05:39] LABS: Hypochromasia Present (Not Present); Platelet Estimate Normal (Normal); Reactive Lymphocytes Present (Not Present)
[2021-09-14] MEDS: Acetaminophen IV 1,000 MG/100 ML BAG IVPB SCH ×2 (06:35→19:24)
[2021-09-14] MEDS: Pantoprazole 40 MG VIAL IVP SCH (07:33)
[2021-09-14] MEDS: Furosemide 40 MG/4 ML VIAL IVP SCH (07:34)
[2021-09-14] MEDS: Aspirin Enteric Coated 81 MG Tablet PO SCH (07:38)
[2021-09-14] MEDS: Insulin DETEMIR 100 UNIT/ML X5UNITS SUBQ SCH (07:45)
[2021-09-14] MEDS ORDERED: Acetaminophen 325 MG TABLET PO PRN (12:15)
[2021-09-14] MEDS: *HR* HYDROcodone/Acet 5/325 mg TABLET PO PRN (14:53)
[2021-09-14] MEDS ORDERED: Clinimix E 5%-15% SOLUTION 2,000 ML with MVI, adult with vitamin K 10 ML IVC SCH (17:00)
[2021-09-14] MEDS ORDERED: Morphine Sulfate 2 MG/ML SYRINGE IVP ONE (19:47)
[2021-09-14] MEDS ORDERED: *HR* LORazepam 2 MG/ML VIAL IVP ONE (21:24)
[2021-09-15] MEDS: Ampicillin/Sulbactam 3,000 MG in 0.9 % Sodium Chloride Mini Bag 100 ML IVPB SCH ×2 (01:03→05:42)
[2021-09-15] MEDS: Insulin LISPRO 300 UNITS/3 ML VIAL SUBQ SCH ×6 (01:04→21:07)
[2021-09-15] MEDS: *HR* OxyCODONE Immed Rel 5 MG TABLET PO PRN ×2 (02:44→16:03)
[2021-09-15 03:02] LABS: Basophils # 0.1 K/mcL (0.0-0.2); Basophils % 0.7 %; Eosinophils # 0.5 K/mcL (0.0-0.6); Eosinophils % 2.9 %; Hematocrit 23.6 % (35.3-44.9); Hemoglobin 7.3 g/dL (11.5-15.4); Immature Granulocytes % 7.5 % (0-4); Lymphocytes # 2.2 K/mcL (0.6-4.6); Lymphocytes % 13.3 %; Mean Corpuscular HGB Conc 30.9 g/dL (31.6-35.5); Mean Corpuscular Hemoglobin 27.8 pg (28.0-33.3); Mean Corpuscular Volume 89.7 fL (83.0-100.0); Mean Platelet Volume 11.9 fL (9.4-12.4); Monocytes # 1.1 K/mcL (0.0-1.3); Monocytes % 6.6 %; Neutrophils # 11.4 K/mcL (1.6-8.9); Nucleated Red Blood Cells 0.2 /100 WBC (0); Platelet Count 355 K/mcL (140-400); Red Blood Count 2.63 M/mcL (3.82-4.97); Red Cell Distribution Width 15.8 % (11.5-14.5); White Blood Count 16.5 K/mcL (4.3-11.1)
[2021-09-15] MEDS: Dexmedetomidine HCl 400 MCG/100 ML MLS IVC SCH (03:02)
[2021-09-15 03:20] LABS: Calcium 8.6 mg/dL (8.6-10.3); Magnesium 2.1 mg/dL (1.6-2.6); Phosphorous 3.5 mg/dL (2.7-4.5); Potassium 3.6 mEq/L (3.5-5.1)
[2021-09-15 03:43] LABS: Large Platelets Present (Not Present); Platelet Estimate Normal (Normal)
[2021-09-15 03:46] LABS: Platelet Clumps Few (Not Present)
[2021-09-15] MEDS: Ipratropium/Albuterol Neb 3 ML IH SCH ×6 (03:48→22:59)
[2021-09-15] MEDS ORDERED: Nitroglycerin 0.4 MG TAB.SUBL SL PRN (05:34)
[2021-09-15] MEDS: *HR* Heparin 5,000 UNIT/ML VIAL SQ SCH ×3 (05:42→21:06)
[2021-09-15] MEDS: Aspirin Enteric Coated 81 MG Tablet PO SCH (08:37)
[2021-09-15] MEDS: Pantoprazole 40 MG VIAL IVP SCH (08:45)
[2021-09-15] MEDS: Furosemide 40 MG/4 ML VIAL IVP SCH (08:46)
[2021-09-15] MEDS: Insulin DETEMIR 100 UNIT/ML X5UNITS SUBQ SCH (08:47)
[2021-09-15] MEDS ORDERED: NIFEdipine XL (24 HR) 30 MG TAB.ER.24 PO ONE (10:56)
[2021-09-15] MEDS: Fluconazole 400 MG/200 ML 400 MG/200 ML BAG IVPB SCH ×2 (11:20→13:19)
[2021-09-15] MEDS: hydrOXYzine pamoate 25 MG CAPSULE PO PRN (15:38)
[2021-09-15] MEDS: Piperacillin/Tazobactam 3.375 GM in 0.9 % Sodium Chloride Mini Bag 100 ML IVPB SCH (15:46)
[2021-09-15] MEDS ORDERED: Clinimix E 5%-15% SOLUTION 2,000 ML with MVI, adult with vitamin K 10 ML IVC SCH (17:00)
[2021-09-16] MEDS: *HR* OxyCODONE Immed Rel 5 MG TABLET PO PRN ×2 (00:20→23:19)
[2021-09-16] MEDS: Piperacillin/Tazobactam 3.375 GM in 0.9 % Sodium Chloride Mini Bag 100 ML IVPB SCH ×3 (00:20→16:28)
[2021-09-16] MEDS: Insulin LISPRO 300 UNITS/3 ML VIAL SUBQ SCH ×6 (00:21→20:09)
[2021-09-16] MEDS: Ipratropium/Albuterol Neb 3 ML IH SCH ×6 (03:33→23:47)
[2021-09-16 04:58] LABS: Hematocrit 22.8 % (35.3-44.9); Hemoglobin 7.1 g/dL (11.5-15.4); Mean Corpuscular HGB Conc 31.1 g/dL (31.6-35.5); Mean Corpuscular Hemoglobin 27.6 pg (28.0-33.3); Mean Corpuscular Volume 88.7 fL (83.0-100.0); Platelet Count 429 K/mcL (140-400); Red Blood Count 2.57 M/mcL (3.82-4.97); Red Cell Distribution Width 15.7 % (11.5-14.5); White Blood Count 16.5 K/mcL (4.3-11.1)
[2021-09-16 05:15] LABS: Calcium 8.5 mg/dL (8.6-10.3); Magnesium 2.2 mg/dL (1.6-2.6); Phosphorous 3.7 mg/dL (2.7-4.5); Potassium 3.5 mEq/L (3.5-5.1)
[2021-09-16] MEDS: *HR* Heparin 5,000 UNIT/ML VIAL SQ SCH ×3 (05:46→20:08)
[2021-09-16] MEDS ORDERED: Insulin DETEMIR 100 UNIT/ML X5UNITS SUBQ SCH (09:00)
[2021-09-16] MEDS: Furosemide 40 MG/4 ML VIAL IVP SCH (09:59)
[2021-09-16] MEDS: Aspirin Enteric Coated 81 MG Tablet PO SCH (09:59)
[2021-09-16] MEDS: Insulin DETEMIR 100 UNIT/ML X5UNITS SUBQ SCH (10:02)
[2021-09-16] MEDS: Pantoprazole 40 MG VIAL IVP SCH (10:06)
[2021-09-16] MEDS: Fluconazole 400 MG/200 ML 400 MG/200 ML BAG IVPB SCH (11:40)
[2021-09-16] MEDS ORDERED: Clinimix E 5%-15% SOLUTION 2,000 ML with MVI, adult with vitamin K 10 ML IVC SCH (17:00)
[2021-09-16] MEDS: hydrOXYzine pamoate 25 MG CAPSULE PO PRN (23:19)
[2021-09-17] MEDS: Piperacillin/Tazobactam 3.375 GM in 0.9 % Sodium Chloride Mini Bag 100 ML IVPB SCH ×3 (00:28→17:24)
[2021-09-17] MEDS: Insulin LISPRO 300 UNITS/3 ML VIAL SUBQ SCH ×6 (00:54→20:46)
[2021-09-17] MEDS: Ipratropium/Albuterol Neb 3 ML IH SCH ×6 (03:53→23:18)
[2021-09-17 05:06] LABS: Hematocrit 22.1 % (35.3-44.9); Hemoglobin 6.9 g/dL (11.5-15.4); Mean Corpuscular HGB Conc 31.2 g/dL (31.6-35.5); Mean Corpuscular Hemoglobin 27.6 pg (28.0-33.3); Mean Corpuscular Volume 88.4 fL (83.0-100.0); Mean Platelet Volume 11.4 fL (9.4-12.4); Platelet Count 412 K/mcL (140-400); Red Cell Distribution Width 15.9 % (11.5-14.5); White Blood Count 16.6 K/mcL (4.3-11.1)
[2021-09-17 05:17] LABS: Calcium 8.4 mg/dL (8.6-10.3); Magnesium 2.2 mg/dL (1.6-2.6); Phosphorous 3.2 mg/dL (2.7-4.5); Potassium 3.4 mEq/L (3.5-5.1)
[2021-09-17] MEDS: *HR* Heparin 5,000 UNIT/ML VIAL SQ SCH ×3 (05:38→20:47)
[2021-09-17] MEDS: Aspirin Enteric Coated 81 MG Tablet PO SCH (10:18)
[2021-09-17] MEDS: Furosemide 40 MG/4 ML VIAL IVP SCH (10:23)
[2021-09-17] MEDS: Pantoprazole 40 MG VIAL IVP SCH (10:24)
[2021-09-17] MEDS: Insulin DETEMIR 100 UNIT/ML X5UNITS SUBQ SCH (10:39)
[2021-09-17] MEDS: Fluconazole 400 MG/200 ML 400 MG/200 ML BAG IVPB SCH (10:49)
[2021-09-17] MEDS ORDERED: Clinimix E 5%-15% SOLUTION 2,000 ML with MVI, adult with vitamin K 10 ML IVC SCH (17:00)
[2021-09-17] MEDS ORDERED: 0.9 % Sodium Chloride 250 ML ONE (17:11)
[2021-09-18] MEDS: Insulin LISPRO 300 UNITS/3 ML VIAL SUBQ SCH ×7 (00:22→23:55)
[2021-09-18] MEDS: Piperacillin/Tazobactam 3.375 GM in 0.9 % Sodium Chloride Mini Bag 100 ML IVPB SCH ×4 (00:23→23:55)
[2021-09-18] MEDS: Ipratropium/Albuterol Neb 3 ML IH SCH ×6 (04:12→23:17)
[2021-09-18 05:08] LABS: Basophils # 0.2 K/mcL (0.0-0.2); Basophils % 0.9 %; Eosinophils # 0.5 K/mcL (0.0-0.6); Eosinophils % 2.8 %; Hematocrit 25.9 % (35.3-44.9); Hemoglobin 8.1 g/dL (11.5-15.4); Immature Granulocytes % 4.5 % (0-4); Lymphocytes # 2.3 K/mcL (0.6-4.6); Lymphocytes % 13.4 %; Mean Corpuscular HGB Conc 31.3 g/dL (31.6-35.5); Mean Corpuscular Hemoglobin 27.9 pg (28.0-33.3); Mean Corpuscular Volume 89.3 fL (83.0-100.0); Monocytes # 1.4 K/mcL (0.0-1.3); Monocytes % 8.3 %; Neutrophils # 11.9 K/mcL (1.6-8.9); Nucleated Red Blood Cells 0.1 /100 WBC (0); Platelet Count 416 K/mcL (140-400); Red Cell Distribution Width 15.7 % (11.5-14.5); Segmented Neutrophils % 70.1 %; White Blood Count 16.9 K/mcL (4.3-11.1)
[2021-09-18 05:30] LABS: Calcium 8.3 mg/dL (8.6-10.3); Magnesium 2.2 mg/dL (1.6-2.6); Phosphorous 3.1 mg/dL (2.7-4.5); Potassium 3.7 mEq/L (3.5-5.1)
[2021-09-18] MEDS: hydrOXYzine pamoate 25 MG CAPSULE PO PRN (06:13)
[2021-09-18] MEDS: *HR* Heparin 5,000 UNIT/ML VIAL SQ SCH ×3 (06:13→20:44)
[2021-09-18] MEDS: Aspirin Enteric Coated 81 MG Tablet PO SCH (07:50)
[2021-09-18] MEDS: Furosemide 40 MG TABLET PO SCH (07:50)
[2021-09-18] MEDS: Fluconazole 400 MG/200 ML 400 MG/200 ML BAG IVPB SCH (07:51)
[2021-09-18] MEDS: *HR* HYDROcodone/Acet 5/325 mg TABLET PO PRN (10:23)
[2021-09-18] MEDS ORDERED: Insulin DETEMIR 100 UNIT/ML X5UNITS SUBQ ONE (10:43)
[2021-09-18] MEDS ORDERED: Clinimix E 5%-15% SOLUTION 2,000 ML with MVI, adult with vitamin K 10 ML IVC SCH (17:00)
[2021-09-19] MEDS: Ipratropium/Albuterol Neb 3 ML IH SCH ×6 (03:35→23:48)
[2021-09-19] MEDS: Insulin LISPRO 300 UNITS/3 ML VIAL SUBQ SCH ×6 (03:39→23:41)
[2021-09-19 05:11] LABS: Basophils # 0.1 K/mcL (0.0-0.2); Basophils % 0.8 %; Eosinophils # 0.6 K/mcL (0.0-0.6); Eosinophils % 3.8 %; Hemoglobin 7.9 g/dL (11.5-15.4); Immature Granulocytes % 3.3 % (0-4); Lymphocytes % 13.1 %; Mean Corpuscular HGB Conc 30.4 g/dL (31.6-35.5); Mean Corpuscular Hemoglobin 27.6 pg (28.0-33.3); Mean Corpuscular Volume 90.9 fL (83.0-100.0); Mean Platelet Volume 10.9 fL (9.4-12.4); Monocytes # 1.2 K/mcL (0.0-1.3); Monocytes % 7.9 %; Neutrophils # 11.1 K/mcL (1.6-8.9); Platelet Count 366 K/mcL (140-400); Red Blood Count 2.86 M/mcL (3.82-4.97); Red Cell Distribution Width 15.8 % (11.5-14.5); Segmented Neutrophils % 71.1 %; White Blood Count 15.6 K/mcL (4.3-11.1)
[2021-09-19 05:33] LABS: BUN/Creatinine Ratio 32 (6-26); Blood Urea Nitrogen 35 mg/dL (8-23); Calcium 8.4 mg/dL (8.6-10.3); Carbon Dioxide 28 mEq/L (23-29); Chloride 102 mEq/L (98-107); Glucose 162 mg/dL (70-105); Magnesium 2.2 mg/dL (1.6-2.6); Osmolality,Calculated 298 (280-300); Phosphorous 3.2 mg/dL (2.7-4.5); Potassium 3.6 mEq/L (3.5-5.1); Sodium 138 mEq/L (136-145); eGFR For African Americans > 60 (> 60); eGFR For Non-African Americans 50 (> 60)
[2021-09-19] MEDS: *HR* Heparin 5,000 UNIT/ML VIAL SQ SCH ×3 (05:58→21:06)
[2021-09-19] MEDS: Aspirin Enteric Coated 81 MG Tablet PO SCH (07:41)
[2021-09-19] MEDS: Piperacillin/Tazobactam 3.375 GM in 0.9 % Sodium Chloride Mini Bag 100 ML IVPB SCH ×3 (07:42→23:40)
[2021-09-19] MEDS: Fluconazole 400 MG/200 ML 400 MG/200 ML BAG IVPB SCH (07:42)
[2021-09-19] MEDS: Furosemide 40 MG TABLET PO SCH (07:42)
[2021-09-19] MEDS ORDERED: Insulin DETEMIR 100 UNIT/ML X5UNITS SUBQ SCH (09:00)
[2021-09-19] MEDS: hydrOXYzine pamoate 25 MG CAPSULE PO PRN (10:01)
[2021-09-19] MEDS ORDERED: Saliva Stimulant 44.3ml BOTTLE PO PRN (10:25)
[2021-09-19] MEDS: Isosorbide MONOnitrate (24 HR) 60 MG TAB.ER.24H PO SCH (11:17)
[2021-09-19] MEDS ORDERED: Clinimix E 5%-15% SOLUTION 2,000 ML with MVI, adult with vitamin K 10 ML IVC SCH (17:00)
[2021-09-20] MEDS: Ipratropium/Albuterol Neb 3 ML IH SCH ×5 (04:19→20:14)
[2021-09-20 04:25] LABS: Basophils # 0.1 K/mcL (0.0-0.2); Basophils % 0.9 %; Eosinophils # 0.8 K/mcL (0.0-0.6); Hematocrit 23.7 % (35.3-44.9); Hemoglobin 7.5 g/dL (11.5-15.4); Lymphocytes # 2.1 K/mcL (0.6-4.6); Mean Corpuscular HGB Conc 31.6 g/dL (31.6-35.5); Mean Corpuscular Hemoglobin 28.7 pg (28.0-33.3); Mean Corpuscular Volume 90.8 fL (83.0-100.0); Mean Platelet Volume 11.3 fL (9.4-12.4); Monocytes # 1.2 K/mcL (0.0-1.3); Monocytes % 7.3 %; Neutrophils # 11.1 K/mcL (1.6-8.9); Platelet Count 392 K/mcL (140-400); Red Blood Count 2.61 M/mcL (3.82-4.97); Red Cell Distribution Width 16.1 % (11.5-14.5); Segmented Neutrophils % 69.8 %; White Blood Count 15.9 K/mcL (4.3-11.1)
[2021-09-20] MEDS: Insulin LISPRO 300 UNITS/3 ML VIAL SUBQ SCH ×6 (04:34→23:46)
[2021-09-20 04:48] LABS: BUN/Creatinine Ratio 32 (6-26); Blood Urea Nitrogen 33 mg/dL (8-23); Calcium 8.2 mg/dL (8.6-10.3); Carbon Dioxide 25 mEq/L (23-29); Chloride 104 mEq/L (98-107); Glucose 98 mg/dL (70-105); Magnesium 2.1 mg/dL (1.6-2.6); Osmolality,Calculated 293 (280-300); Phosphorous 2.6 mg/dL (2.7-4.5); Potassium 3.7 mEq/L (3.5-5.1); Sodium 138 mEq/L (136-145); eGFR For African Americans > 60 (> 60); eGFR For Non-African Americans 53 (> 60)
[2021-09-20] MEDS: *HR* Heparin 5,000 UNIT/ML VIAL SQ SCH ×3 (05:47→20:50)
[2021-09-20] MEDS: Aspirin Enteric Coated 81 MG Tablet PO SCH (08:17)
[2021-09-20] MEDS: Furosemide 40 MG TABLET PO SCH (08:17)
[2021-09-20] MEDS: Piperacillin/Tazobactam 3.375 GM in 0.9 % Sodium Chloride Mini Bag 100 ML IVPB SCH ×3 (08:18→23:56)
[2021-09-20] MEDS: Fluconazole 400 MG/200 ML 400 MG/200 ML BAG IVPB SCH (08:18)
[2021-09-20] MEDS: Isosorbide MONOnitrate (24 HR) 60 MG TAB.ER.24H PO SCH (08:18)
[2021-09-20] MEDS: Insulin DETEMIR 100 UNIT/ML X5UNITS SUBQ SCH ×2 (08:44→19:24)
[2021-09-20] MEDS ORDERED: amLODIPine 5 MG TABLET PO SCH (09:00)
[2021-09-20] MEDS ORDERED: Furosemide 40 MG/4 ML VIAL IVP ONE (09:11)
[2021-09-20] MEDS ORDERED: Isovue-370 500 ML BOTTLE IVP ONE ×2 (13:18)
[2021-09-20] MEDS ORDERED: Clinimix E 5%-15% SOLUTION 2,000 ML with MVI, adult with vitamin K 10 ML IVC SCH (17:00)
[2021-09-20] MEDS: hydrOXYzine pamoate 25 MG CAPSULE PO PRN (18:13)
[2021-09-21] MEDS: Ipratropium/Albuterol Neb 3 ML IH SCH ×6 (00:09→20:26)
[2021-09-21] MEDS: Insulin LISPRO 300 UNITS/3 ML VIAL SUBQ SCH ×5 (04:26→22:04)
[2021-09-21 05:06] LABS: Basophils # 0.2 K/mcL (0.0-0.2); Basophils % 1.1 %; Eosinophils # 0.7 K/mcL (0.0-0.6); Eosinophils % 5.3 %; Hematocrit 24.4 % (35.3-44.9); Hemoglobin 7.4 g/dL (11.5-15.4); Immature Granulocytes % 2.9 % (0-4); Lymphocytes # 2.4 K/mcL (0.6-4.6); Lymphocytes % 17.8 %; Mean Corpuscular HGB Conc 30.3 g/dL (31.6-35.5); Mean Corpuscular Hemoglobin 27.4 pg (28.0-33.3); Mean Corpuscular Volume 90.4 fL (83.0-100.0); Mean Platelet Volume 11.4 fL (9.4-12.4); Monocytes # 1.1 K/mcL (0.0-1.3); Monocytes % 7.7 %; Neutrophils # 8.9 K/mcL (1.6-8.9); Platelet Count 460 K/mcL (140-400); Red Cell Distribution Width 16.3 % (11.5-14.5); Segmented Neutrophils % 65.2 %; White Blood Count 13.6 K/mcL (4.3-11.1)
[2021-09-21 05:17] LABS: Calcium 8.1 mg/dL (8.6-10.3); Magnesium 2.1 mg/dL (1.6-2.6); Phosphorous 3.5 mg/dL (2.7-4.5); Potassium 3.8 mEq/L (3.5-5.1)
[2021-09-21] MEDS: *HR* Heparin 5,000 UNIT/ML VIAL SQ SCH ×3 (05:30→21:50)
[2021-09-21] MEDS: Isosorbide MONOnitrate (24 HR) 60 MG TAB.ER.24H PO SCH (08:16)
[2021-09-21] MEDS: Aspirin Enteric Coated 81 MG Tablet PO SCH (08:17)
[2021-09-21] MEDS: Piperacillin/Tazobactam 3.375 GM in 0.9 % Sodium Chloride Mini Bag 100 ML IVPB SCH ×3 (08:18→23:13)
[2021-09-21] MEDS: Fluconazole 400 MG/200 ML 400 MG/200 ML BAG IVPB SCH (08:18)
[2021-09-21] MEDS: Furosemide 40 MG TABLET PO SCH (08:19)
[2021-09-21] MEDS: Insulin DETEMIR 100 UNIT/ML X5UNITS SUBQ SCH (08:21)
[2021-09-21] MEDS ORDERED: Clinimix E 5%-15% SOLUTION 2,000 ML with MVI, adult with vitamin K 10 ML IVC SCH (17:00)
[2021-09-22] MEDS: Ipratropium/Albuterol Neb 3 ML IH SCH ×7 (00:17→23:06)
[2021-09-22] MEDS: Insulin LISPRO 300 UNITS/3 ML VIAL SUBQ SCH ×6 (00:28→21:45)
[2021-09-22 02:18] LABS: Basophils # 0.1 K/mcL (0.0-0.2); Eosinophils # 0.9 K/mcL (0.0-0.6); Eosinophils % 7.2 %; Hematocrit 22.6 % (35.3-44.9); Immature Granulocytes % 3.5 % (0-4); Lymphocytes # 2.5 K/mcL (0.6-4.6); Lymphocytes % 20.6 %; Mean Corpuscular Hemoglobin 28.2 pg (28.0-33.3); Mean Corpuscular Volume 91.1 fL (83.0-100.0); Mean Platelet Volume 11.4 fL (9.4-12.4); Monocytes % 8.1 %; Neutrophils # 7.1 K/mcL (1.6-8.9); Platelet Count 410 K/mcL (140-400); Red Blood Count 2.48 M/mcL (3.82-4.97); Red Cell Distribution Width 16.5 % (11.5-14.5); Segmented Neutrophils % 59.6 %
[2021-09-22 02:41] LABS: BUN/Creatinine Ratio 27 (6-26); Blood Urea Nitrogen 29 mg/dL (8-23); Calcium 8.1 mg/dL (8.6-10.3); Carbon Dioxide 28 mEq/L (23-29); Chloride 103 mEq/L (98-107); Glucose 130 mg/dL (70-105); Magnesium 2.1 mg/dL (1.6-2.6); Osmolality,Calculated 292 (280-300); Phosphorous 3.4 mg/dL (2.7-4.5); Potassium 3.8 mEq/L (3.5-5.1); Sodium 137 mEq/L (136-145); eGFR For African Americans > 60 (> 60); eGFR For Non-African Americans 51 (> 60)
[2021-09-22] MEDS: *HR* Heparin 5,000 UNIT/ML VIAL SQ SCH ×3 (05:04→21:45)
[2021-09-22] MEDS: Piperacillin/Tazobactam 3.375 GM in 0.9 % Sodium Chloride Mini Bag 100 ML IVPB SCH ×3 (09:04→23:36)
[2021-09-22] MEDS: Aspirin Enteric Coated 81 MG Tablet PO SCH (09:05)
[2021-09-22] MEDS: Furosemide 40 MG TABLET PO SCH (09:05)
[2021-09-22] MEDS: Isosorbide MONOnitrate (24 HR) 60 MG TAB.ER.24H PO SCH (09:05)
[2021-09-22] MEDS: Fluconazole 400 MG/200 ML 400 MG/200 ML BAG IVPB SCH (09:06)
[2021-09-22] MEDS: Insulin DETEMIR 100 UNIT/ML X5UNITS SUBQ SCH (09:21)
[2021-09-22] MEDS: Pantoprazole 40 MG VIAL IVP SCH (16:43)
[2021-09-23] MEDS: Ipratropium/Albuterol Neb 3 ML IH SCH ×5 (04:00→20:11)
[2021-09-23] MEDS: *HR* Heparin 5,000 UNIT/ML VIAL SQ SCH ×3 (05:12→20:44)
[2021-09-23] MEDS: Pantoprazole 40 MG VIAL IVP SCH ×2 (05:12→15:54)
[2021-09-23 06:27] LABS: Hematocrit 23.5 % (35.3-44.9); Hemoglobin 7.4 g/dL (11.5-15.4); Mean Corpuscular HGB Conc 31.5 g/dL (31.6-35.5); Mean Corpuscular Hemoglobin 28.6 pg (28.0-33.3); Mean Corpuscular Volume 90.7 fL (83.0-100.0); Mean Platelet Volume 11.6 fL (9.4-12.4); Platelet Count 322 K/mcL (140-400); Red Blood Count 2.59 M/mcL (3.82-4.97); Red Cell Distribution Width 16.5 % (11.5-14.5); White Blood Count 11.9 K/mcL (4.3-11.1)
[2021-09-23 06:47] LABS: BUN/Creatinine Ratio 24 (6-26); Blood Urea Nitrogen 26 mg/dL (8-23); Calcium 8.3 mg/dL (8.6-10.3); Carbon Dioxide 26 mEq/L (23-29); Chloride 104 mEq/L (98-107); Glucose 149 mg/dL (70-105); Osmolality,Calculated 292 (280-300); Potassium 3.8 mEq/L (3.5-5.1); Sodium 137 mEq/L (136-145); eGFR For African Americans > 60 (> 60); eGFR For Non-African Americans 51 (> 60)
[2021-09-23] MEDS: Furosemide 40 MG TABLET PO SCH (07:45)
[2021-09-23] MEDS: Insulin DETEMIR 100 UNIT/ML X5UNITS SUBQ SCH (07:46)
[2021-09-23] MEDS: Aspirin Enteric Coated 81 MG Tablet PO SCH (07:46)
[2021-09-23] MEDS: Isosorbide MONOnitrate (24 HR) 60 MG TAB.ER.24H PO SCH (07:46)
[2021-09-23] MEDS: Fluconazole 100 MG TABLET PO SCH (07:46)
[2021-09-23] MEDS: Piperacillin/Tazobactam 3.375 GM in 0.9 % Sodium Chloride Mini Bag 100 ML IVPB SCH ×3 (07:47→23:33)
[2021-09-23] MEDS: Insulin LISPRO 300 UNITS/3 ML VIAL SUBQ SCH ×4 (07:48→20:06)
[2021-09-23] MEDS: hydrOXYzine pamoate 25 MG CAPSULE PO PRN (11:43)
[2021-09-24] MEDS: Ipratropium/Albuterol Neb 3 ML IH SCH ×7 (00:26→23:52)
[2021-09-24 01:54] LABS: Basophils # 0.2 K/mcL (0.0-0.2); Basophils % 1.3 %; Eosinophils # 1.1 K/mcL (0.0-0.6); Eosinophils % 9.6 %; Hematocrit 23.8 % (35.3-44.9); Hemoglobin 7.2 g/dL (11.5-15.4); Immature Granulocytes % 3.3 % (0-4); Lymphocytes # 2.7 K/mcL (0.6-4.6); Lymphocytes % 23.1 %; Mean Corpuscular HGB Conc 30.3 g/dL (31.6-35.5); Mean Corpuscular Hemoglobin 27.6 pg (28.0-33.3); Mean Corpuscular Volume 91.2 fL (83.0-100.0); Mean Platelet Volume 11.1 fL (9.4-12.4); Monocytes # 0.9 K/mcL (0.0-1.3); Neutrophils # 6.4 K/mcL (1.6-8.9); Nucleated Red Blood Cells 0.2 /100 WBC (0); Platelet Count 445 K/mcL (140-400); Red Blood Count 2.61 M/mcL (3.82-4.97); Red Cell Distribution Width 16.7 % (11.5-14.5); Segmented Neutrophils % 54.7 %; White Blood Count 11.7 K/mcL (4.3-11.1)
[2021-09-24 02:10] LABS: BUN/Creatinine Ratio 23 (6-26); Blood Urea Nitrogen 24 mg/dL (8-23); Calcium 8.2 mg/dL (8.6-10.3); Carbon Dioxide 27 mEq/L (23-29); Chloride 104 mEq/L (98-107); Glucose 152 mg/dL (70-105); Osmolality,Calculated 293 (280-300); Potassium 3.9 mEq/L (3.5-5.1); Sodium 138 mEq/L (136-145); eGFR For African Americans > 60 (> 60); eGFR For Non-African Americans 52 (> 60)
[2021-09-24] MEDS: *HR* Heparin 5,000 UNIT/ML VIAL SQ SCH ×3 (06:15→20:49)
[2021-09-24] MEDS: Pantoprazole 40 MG VIAL IVP SCH ×2 (06:16→16:52)
[2021-09-24] MEDS: Insulin DETEMIR 100 UNIT/ML X5UNITS SUBQ SCH (08:51)
[2021-09-24] MEDS: Fluconazole 100 MG TABLET PO SCH (08:55)
[2021-09-24] MEDS: Aspirin Enteric Coated 81 MG Tablet PO SCH (08:55)
[2021-09-24] MEDS: Isosorbide MONOnitrate (24 HR) 60 MG TAB.ER.24H PO SCH (08:55)
[2021-09-24] MEDS: Piperacillin/Tazobactam 3.375 GM in 0.9 % Sodium Chloride Mini Bag 100 ML IVPB SCH ×3 (08:56→23:05)
[2021-09-24] MEDS: Furosemide 40 MG TABLET PO SCH (08:56)
[2021-09-24] MEDS: Insulin LISPRO 300 UNITS/3 ML VIAL SUBQ SCH ×4 (08:57→20:48)
[2021-09-24] MEDS: *HR* HYDROcodone/Acet 5/325 mg TABLET PO PRN (14:35)
[2021-09-25] MEDS: Melatonin 3 MG TABLET PO PRN (00:07)
[2021-09-25] MEDS: Ipratropium/Albuterol Neb 3 ML IH SCH ×6 (03:52→23:49)
[2021-09-25] MEDS: *HR* Heparin 5,000 UNIT/ML VIAL SQ SCH ×3 (05:45→21:22)
[2021-09-25] MEDS: Pantoprazole 40 MG VIAL IVP SCH ×2 (05:45→16:52)
[2021-09-25] MEDS: Insulin LISPRO 300 UNITS/3 ML VIAL SUBQ SCH ×4 (07:28→21:21)
[2021-09-25] MEDS: Furosemide 40 MG TABLET PO SCH (08:33)
[2021-09-25] MEDS: Fluconazole 100 MG TABLET PO SCH (08:33)
[2021-09-25] MEDS: Aspirin Enteric Coated 81 MG Tablet PO SCH (08:33)
[2021-09-25] MEDS: Isosorbide MONOnitrate (24 HR) 60 MG TAB.ER.24H PO SCH (08:33)
[2021-09-25] MEDS: Piperacillin/Tazobactam 3.375 GM in 0.9 % Sodium Chloride Mini Bag 100 ML IVPB SCH ×3 (08:34→23:53)
[2021-09-25] MEDS: Insulin DETEMIR 100 UNIT/ML X5UNITS SUBQ SCH (08:35)
[2021-09-25 10:48] LABS: BUN/Creatinine Ratio 21 (6-26); Blood Urea Nitrogen 23 mg/dL (8-23); Calcium 8.6 mg/dL (8.6-10.3); Carbon Dioxide 25 mEq/L (23-29); Chloride 105 mEq/L (98-107); Glucose 222 mg/dL (70-105); Osmolality,Calculated 297 (280-300); Phosphorous 3.2 mg/dL (2.7-4.5); Potassium 4.4 mEq/L (3.5-5.1); Sodium 138 mEq/L (136-145); eGFR For African Americans > 60 (> 60); eGFR For Non-African Americans 51 (> 60)
[2021-09-25] MEDS ORDERED: *HR* Alteplase (Cathflo) 2 MG VIAL IVP ONE (11:59)
[2021-09-25] MEDS: *HR* HYDROcodone/Acet 5/325 mg TABLET PO PRN (12:26)
[2021-09-25] MEDS: amLODIPine 5 MG TABLET PO SCH (12:26)
[2021-09-25 15:25] LABS: Basophils # 0.1 K/mcL (0.0-0.2); Eosinophils # 0.9 K/mcL (0.0-0.6); Eosinophils % 8.3 %; Hematocrit 23.3 % (35.3-44.9); Hemoglobin 7.3 g/dL (11.5-15.4); Immature Granulocytes % 3.6 % (0-4); Lymphocytes # 2.5 K/mcL (0.6-4.6); Lymphocytes % 22.4 %; Mean Corpuscular HGB Conc 31.3 g/dL (31.6-35.5); Mean Corpuscular Hemoglobin 28.9 pg (28.0-33.3); Mean Corpuscular Volume 92.1 fL (83.0-100.0); Mean Platelet Volume 11.3 fL (9.4-12.4); Monocytes # 0.8 K/mcL (0.0-1.3); Monocytes % 7.6 %; Neutrophils # 6.3 K/mcL (1.6-8.9); Nucleated Red Blood Cells 0.2 /100 WBC (0); Platelet Count 465 K/mcL (140-400); Red Blood Count 2.53 M/mcL (3.82-4.97); Red Cell Distribution Width 16.9 % (11.5-14.5); Segmented Neutrophils % 57.1 %
[2021-09-25 15:30] LABS: Platelet Estimate Normal (Normal); Reactive Lymphocytes Present (Not Present)
[2021-09-26] MEDS: Ipratropium/Albuterol Neb 3 ML IH SCH ×6 (03:49→23:45)
[2021-09-26 04:50] LABS: Hematocrit 24.6 % (35.3-44.9); Hemoglobin 7.4 g/dL (11.5-15.4); Mean Corpuscular HGB Conc 30.1 g/dL (31.6-35.5); Mean Corpuscular Hemoglobin 27.6 pg (28.0-33.3); Mean Corpuscular Volume 91.8 fL (83.0-100.0); Mean Platelet Volume 11.6 fL (9.4-12.4); Platelet Count 372 K/mcL (140-400); Red Blood Count 2.68 M/mcL (3.82-4.97); Red Cell Distribution Width 17.2 % (11.5-14.5); White Blood Count 11.4 K/mcL (4.3-11.1)
[2021-09-26 05:05] LABS: Calcium 8.4 mg/dL (8.6-10.3); Potassium 3.8 mEq/L (3.5-5.1)
[2021-09-26] MEDS: Pantoprazole 40 MG VIAL IVP SCH ×2 (06:01→18:14)
[2021-09-26] MEDS: *HR* Heparin 5,000 UNIT/ML VIAL SQ SCH ×3 (06:01→20:39)
[2021-09-26] MEDS: Insulin DETEMIR 100 UNIT/ML X5UNITS SUBQ SCH (08:13)
[2021-09-26] MEDS: Insulin LISPRO 300 UNITS/3 ML VIAL SUBQ SCH ×4 (08:15→20:56)
[2021-09-26] MEDS: Aspirin Enteric Coated 81 MG Tablet PO SCH (08:17)
[2021-09-26] MEDS: amLODIPine 5 MG TABLET PO SCH (08:17)
[2021-09-26] MEDS: Piperacillin/Tazobactam 3.375 GM in 0.9 % Sodium Chloride Mini Bag 100 ML IVPB SCH ×2 (08:18→15:18)
[2021-09-26] MEDS: Fluconazole 100 MG TABLET PO SCH (08:18)
[2021-09-26] MEDS: Isosorbide MONOnitrate (24 HR) 60 MG TAB.ER.24H PO SCH (08:18)
[2021-09-26] MEDS: Furosemide 40 MG TABLET PO SCH (08:18)
[2021-09-26] MEDS: hydrOXYzine pamoate 25 MG CAPSULE PO PRN (11:04)
[2021-09-26] MEDS: *HR* HYDROcodone/Acet 5/325 mg TABLET PO PRN (15:17)
[2021-09-27] MEDS: Piperacillin/Tazobactam 3.375 GM in 0.9 % Sodium Chloride Mini Bag 100 ML IVPB SCH ×4 (00:54→23:44)
[2021-09-27] MEDS ORDERED: Famotidine 20 MG TABLET PO ONE (03:26)
[2021-09-27] MEDS: Ipratropium/Albuterol Neb 3 ML IH SCH ×6 (04:19→23:08)
[2021-09-27] MEDS: *HR* Heparin 5,000 UNIT/ML VIAL SQ SCH ×3 (05:55→20:49)
[2021-09-27] MEDS: Pantoprazole 40 MG VIAL IVP SCH ×2 (06:10→17:29)
[2021-09-27 06:32] LABS: Hematocrit 24.7 % (35.3-44.9); Hemoglobin 7.5 g/dL (11.5-15.4); Mean Corpuscular HGB Conc 30.4 g/dL (31.6-35.5); Mean Corpuscular Volume 92.2 fL (83.0-100.0); Mean Platelet Volume 11.7 fL (9.4-12.4); Platelet Count 351 K/mcL (140-400); Red Blood Count 2.68 M/mcL (3.82-4.97); Red Cell Distribution Width 17.5 % (11.5-14.5); White Blood Count 10.5 K/mcL (4.3-11.1)
[2021-09-27] MEDS: Insulin LISPRO 300 UNITS/3 ML VIAL SUBQ SCH ×4 (07:29→21:03)
[2021-09-27] MEDS: *HR* HYDROcodone/Acet 5/325 mg TABLET PO PRN (07:41)
[2021-09-27] MEDS: amLODIPine 5 MG TABLET PO SCH (07:42)
[2021-09-27] MEDS: Aspirin Enteric Coated 81 MG Tablet PO SCH (07:42)
[2021-09-27] MEDS: Isosorbide MONOnitrate (24 HR) 60 MG TAB.ER.24H PO SCH (07:42)
[2021-09-27] MEDS: Furosemide 40 MG TABLET PO SCH (07:42)
[2021-09-27] MEDS: Fluconazole 100 MG TABLET PO SCH (07:43)
[2021-09-27] MEDS: Insulin DETEMIR 100 UNIT/ML X5UNITS SUBQ SCH (09:32)
[2021-09-27] MEDS ORDERED: Isovue-370 500 ML BOTTLE IVP ONE (16:57)
[2021-09-27] MEDS: hydrOXYzine pamoate 25 MG CAPSULE PO PRN (21:02)
[2021-09-27] MEDS: Melatonin 3 MG TABLET PO PRN (21:02)
[2021-09-28] MEDS: Ipratropium/Albuterol Neb 3 ML IH SCH ×4 (03:29→16:07)
[2021-09-28 03:58] LABS: Hematocrit 25.4 % (35.3-44.9); Hemoglobin 7.5 g/dL (11.5-15.4); Mean Corpuscular HGB Conc 29.5 g/dL (31.6-35.5); Mean Corpuscular Hemoglobin 27.4 pg (28.0-33.3); Mean Corpuscular Volume 92.7 fL (83.0-100.0); Mean Platelet Volume 11.4 fL (9.4-12.4); Platelet Count 369 K/mcL (140-400); Red Blood Count 2.74 M/mcL (3.82-4.97); Red Cell Distribution Width 17.8 % (11.5-14.5); White Blood Count 10.7 K/mcL (4.3-11.1)
[2021-09-28 04:12] LABS: Calcium 8.9 mg/dL (8.6-10.3); Potassium 3.7 mEq/L (3.5-5.1)
[2021-09-28] MEDS: *HR* Heparin 5,000 UNIT/ML VIAL SQ SCH ×2 (06:04→16:17)
[2021-09-28] MEDS: Pantoprazole 40 MG VIAL IVP SCH (06:04)
[2021-09-28] MEDS: Insulin LISPRO 300 UNITS/3 ML VIAL SUBQ SCH ×3 (08:26→16:17)
[2021-09-28] MEDS: Piperacillin/Tazobactam 3.375 GM in 0.9 % Sodium Chloride Mini Bag 100 ML IVPB SCH ×2 (08:49→16:16)
[2021-09-28] MEDS: Aspirin Enteric Coated 81 MG Tablet PO SCH (08:50)
[2021-09-28] MEDS: amLODIPine 5 MG TABLET PO SCH (08:50)
[2021-09-28] MEDS: Furosemide 40 MG TABLET PO SCH (08:50)
[2021-09-28] MEDS: Fluconazole 100 MG TABLET PO SCH (08:50)
[2021-09-28] MEDS: Isosorbide MONOnitrate (24 HR) 60 MG TAB.ER.24H PO SCH (08:51)
[2021-09-28] MEDS: Insulin DETEMIR 100 UNIT/ML X5UNITS SUBQ SCH (09:29)
[2021-09-28] MEDS: *HR* HYDROcodone/Acet 5/325 mg TABLET PO PRN (12:03)
[2021-09-28 15:16] VITALS: BP 130/63; PULSE 62; TEMP 97.9
[2021-09-28 16:13] VITALS: O2SAT 96
[2021-09-28 17:32] LABS: Adenovirus Not Detected (Not Detect); Bordetella Pertussis Not Detected (Not Detect); Chlamydophila pneumoniae Not Detected (Not Detect); Coronavirus 229E Not Detected (Not Detect); Coronavirus HKU1 Not Detected (Not Detect); Coronavirus NL63 Not Detected (Not Detect); Coronavirus OC43 Not Detected (Not Detect); Human Metapneumovirus Not Detected (Not Detect); Human Rhinovirus/Enterovirus Not Detected (Not Detect); Influenza A Subtype 2009 H1 Not Detected (Not Detect); Influenza B Not Detected (Not Detect); Mycoplasma pneumoniae Not Detected (Not Detect); Parainfluenza Virus 1 Not Detected (Not Detect); Parainfluenza Virus 2 Not Detected (Not Detect); Parainfluenza Virus 3 Not Detected (Not Detect); Parainfluenza Virus 4 Not Detected (Not Detect); Respiratory Syncytial Virus Not Detected (Not Detect); SARS-CoV-2 Not Detected (Not Detect)
[2021-09-28] MEDS ORDERED: Ipratropium/Albuterol Neb 3 ML IH SCH (22:00)
== END 2021-09-28 18:46 | disposition other institution (70) | DRG 856 ==
LOC: EMEROOARM 23:59 → 2NNU 23:59 → SUATTDRO 09-06 06:05 → ICNU 09-06 08:16 → 2NNU 09-12 15:57 → 2ANU 09-15 10:12
PROVIDERS: ADMIT Student in an Organized Health Care Education/Training Program; ATTEND Internal Medicine
PROC: IRDRAIN (2021-09-21 12:00)

== ENCOUNTER 2021-10-14 13:04 | Observation (INO) ==
[2021-10-14] MEDS ORDERED: 0.9 % Sodium Chloride 1,000 ML IVC ONE (13:24)
[2021-10-14] MEDS ORDERED: Ondansetron ODT 4 MG TAB.RAPDIS SL ONE (13:24)
[2021-10-14 14:01] LABS: Basophils # 0.2 K/mcL (0.0-0.2); Basophils % 1.5 %; Eosinophils # 0.7 K/mcL (0.0-0.6); Eosinophils % 7.3 %; Hematocrit 30.3 % (35.3-44.9); Hemoglobin 9.1 g/dL (11.5-15.4); Immature Granulocytes % 2.7 % (0-4); Lymphocytes # 2.1 K/mcL (0.6-4.6); Lymphocytes % 21.6 %; Mean Corpuscular Hemoglobin 27.3 pg (28.0-33.3); Mean Platelet Volume 10.5 fL (9.4-12.4); Monocytes # 0.8 K/mcL (0.0-1.3); Neutrophils # 5.8 K/mcL (1.6-8.9); Platelet Count 392 K/mcL (140-400); Red Blood Count 3.33 M/mcL (3.82-4.97); Red Cell Distribution Width 16.6 % (11.5-14.5); Segmented Neutrophils % 58.9 %; White Blood Count 9.9 K/mcL (4.3-11.1)
[2021-10-14 14:33] LABS: Calcium 9.6 mg/dL (8.6-10.3); Potassium 4.2 mEq/L (3.5-5.1)
[2021-10-14] MEDS ORDERED: Naloxone 0.4 MG/ML INJ IVP PRN (16:24)
[2021-10-14] MEDS ORDERED: hydrOXYzine pamoate 25 MG CAPSULE PO PRN (16:26)
[2021-10-14] MEDS ORDERED: Acetaminophen 325 MG TABLET PO PRN (16:26)
[2021-10-14] MEDS ORDERED: *HR* HYDROcodone/Acet 5/325 mg TABLET PO PRN (16:26)
[2021-10-14] MEDS ORDERED: Nicotine 21 MG PATCH.TD24 TD PRN (16:26)
[2021-10-14] MEDS ORDERED: TAZOBACTAM IVPB SCH (16:30)
[2021-10-14] MEDS ORDERED: PIPERACILLIN IVPB SCH (16:30)
[2021-10-14] MEDS ORDERED: [UNRECOGNIZED DRUG - OTHER] IVPB SCH (16:30)
[2021-10-14] MEDS ORDERED: Piperacillin/Tazobactam 3.375 GM in 0.9 % Sodium Chloride Mini Bag 100 ML IVPB SCH (17:00)
[2021-10-14] MEDS ORDERED: 0.9 % Sodium Chloride 1,000 ML IVC SCH (17:15)
[2021-10-14] MEDS ORDERED: Ondansetron ODT 4 MG TAB.RAPDIS SL PRN (17:22)
[2021-10-14 17:53] LABS: Magnesium 1.8 mg/dL (1.6-2.6); Phosphorous 3.4 mg/dL (2.7-4.5)
[2021-10-14] MEDS: *HR* Heparin 5,000 UNIT/ML VIAL SQ SCH (18:58)
[2021-10-14 19:45] LABS: Bilirubin,Urine Negative (Negative); Blood,Urine Negative (Negative); Clarity,Urine Turbid (Clear); Color,Urine Yellow (Yellow); Glucose,Urine (UA) Normal (Normal); Hyaline Casts,Urine Few per lpf (None Seen); Ketones,Urine Negative (Negative); Leukocyte Esterase,Urine Large (Negative); Mucus,Urine Few per lpf (None-Few); Nitrite,Urine Negative (Negative); PH,Urine 5.5 pH Units (5.0-8.0); Protein,Urine 70 mg/dL (Neg-Trace); RBC,Urine 0-3 per hpf (0-3); Renal Epithelial Cells,Urine Few per hpf (None-Few); Specific Gravity,Urine 1.024 (1.010-1.025); Squamous Epithelial Cell,Urine Few per hpf (None-Few); Transitional Epi Cells,Urine Few per hpf (None-Few); Urobilinogen,Urine Normal (Normal); WBC,Urine 30-50 per hpf (0-3)
[2021-10-14] MEDS: Ipratropium/Albuterol Neb 3 ML IH SCH ×2 (20:10→23:28)
[2021-10-14] MEDS ORDERED: D5% in Water 1,000 ML IVC PRN (20:30)
[2021-10-14] MEDS ORDERED: *HR* Dextrose 50 % in Water (Syg) 50 ML SYRINGE IVP PRN (20:30)
[2021-10-14] MEDS ORDERED: Dextrose Gel 15 GM/37.5 ML TUBE PO PRN ×2 (20:30)
[2021-10-15] MEDS: Ipratropium/Albuterol Neb 3 ML IH SCH ×3 (03:38→11:11)
[2021-10-15] MEDS: *HR* Heparin 5,000 UNIT/ML VIAL SQ SCH (05:53)
[2021-10-15 06:37] LABS: Basophils # 0.1 K/mcL (0.0-0.2); Basophils % 1.2 %; Eosinophils # 0.7 K/mcL (0.0-0.6); Eosinophils % 7.7 %; Hemoglobin 8.3 g/dL (11.5-15.4); Immature Granulocytes % 1.6 % (0-4); Lymphocytes % 22.2 %; Mean Corpuscular HGB Conc 29.6 g/dL (31.6-35.5); Mean Corpuscular Hemoglobin 27.1 pg (28.0-33.3); Mean Corpuscular Volume 91.5 fL (83.0-100.0); Mean Platelet Volume 11.2 fL (9.4-12.4); Monocytes # 0.9 K/mcL (0.0-1.3); Neutrophils # 5.3 K/mcL (1.6-8.9); Platelet Count 286 K/mcL (140-400); Red Blood Count 3.06 M/mcL (3.82-4.97); Red Cell Distribution Width 16.8 % (11.5-14.5); Segmented Neutrophils % 57.3 %; White Blood Count 9.2 K/mcL (4.3-11.1)
[2021-10-15 06:52] LABS: Calcium 8.8 mg/dL (8.6-10.3); Potassium 4.1 mEq/L (3.5-5.1)
[2021-10-15 08:02] VITALS: TEMP 97.6
[2021-10-15] MEDS ORDERED: Isosorbide MONOnitrate (24 HR) 60 MG TAB.ER.24H PO SCH (09:00)
[2021-10-15] MEDS ORDERED: Insulin DETEMIR 100 UNIT/ML X5UNITS SUBQ SCH (09:00)
[2021-10-15] MEDS ORDERED: Furosemide 40 MG TABLET PO SCH (09:00)
[2021-10-15] MEDS ORDERED: Fluconazole 100 MG TABLET PO SCH (09:00)
[2021-10-15] MEDS ORDERED: Loratadine 10 MG TABLET PO SCH (09:00)
[2021-10-15] MEDS ORDERED: amLODIPine 5 MG TABLET PO SCH (09:00)
[2021-10-15] MEDS ORDERED: Aspirin Enteric Coated 81 MG Tablet PO SCH (09:00)
[2021-10-15 11:30] VITALS: BP 126/74; PULSE 67; O2SAT 97
== END 2021-10-15 13:18 | disposition home or self-care (01) ==
LOC: EMEROOARM 13:04 → 3ANU 13:04 → SUATTDRO 17:12 → 3ANU 17:46
PROVIDERS: ADMIT Pharmacist; ATTEND Internal Medicine